=== PATIENT | female | born 1955 | race Caucasian/White ===

== ENCOUNTER → 2020-06-21 13:54 | Outpatient (CLI) | payer OTHER, SELFPAY ==
[2020-06-21] MEDS: COVID-19 VACC #1, MRNA(MOD) 100 MCG/0.5 ML VIAL IM (14:00)
== END ==
PROVIDERS: Visit Provider Internal Medicine
DX: Z23 Encounter for immunization (principal)
CPT/HCPCS: 0011A; 91301

== ENCOUNTER → 2020-07-19 13:24 | Outpatient (CLI) | payer OTHER, SELFPAY ==
[2020-07-19] MEDS: COVID-19 VACC #2, MRNA(MOD) 100 MCG/0.5 ML VIAL IM (13:29)
== END ==
PROVIDERS: Visit Provider Internal Medicine
DX: Z23 Encounter for immunization (principal)
CPT/HCPCS: 0012A; 91301

== ENCOUNTER 2021-09-15 12:46 | Inpatient (IN) | payer OTHER, SELFPAY ==
[2021-09-15] VITALS (13 sets, daily range): BP systolic 134–173; BP diastolic 64–87; PULSE 74–84; RESP 18–43; TEMP 36.4; O2SAT 95–99; BMI 22.3
--- NOTE | 2021-09-15 17:07 | DI.CT.S_ITS ---
PROCEDURE: CT HEAD/BRAIN WO CON INDICATIONS: speech disturbance TECHNIQUE: Noncontrast 4.5 mm thick angled axial sections acquired from the foramen magnum to the vertex, with coronal and sagittal reformats. For radiation dose reduction, the following was used: automated exposure control, adjustment of mA and/or kV according to patient size. COMPARISON: None. FINDINGS: Image quality: Excellent. CSF spaces: Basal cisterns are patent. No extra-axial fluid collections. Lateral ventricles are asymmetric in size with the right greater than left, likely normal variant. Brain: No intracranial bleeds or masses. There is cerebral volume loss for age, with resultant ventricular and sulcal prominence. There are periventricular and deep white matter chronic small vessel ischemic changes. There is intracranial internal carotid artery atherosclerosis. Skull and face: Calvarium and visualized facial bones appear intact, without suspicious lesions. Sinuses: Visualized sinuses and mastoids are clear. IMPRESSION: Cerebral atrophy and microvascular ischemic changes. No evidence of an acute intracranial abnormality. Dictated by: Scottie Deras D.O. on 09/15/2021 at 17:07 Approved by: Scottie Deras D.O. on 09/15/2021 at 17:16
--- NOTE | 2021-09-15 17:07 | DI.RAD.S_ITS ---
PROCEDURE: XR THORACIC SPINE 2V INDICATIONS: spine pain TECHNIQUE: 3 views of the thoracic spine were acquired. COMPARISON: None. FINDINGS: Bones: No fractures or dislocations. Vertebral body heights are maintained. Multiple levels of endplate degenerative changes. No suspicious bony lesions. Twelve pairs of ribs are noted, and appear intact where visualized. S-shaped curvature of the thoracolumbar spine with dextroscoliotic curvature of the mid to lower thoracic spine and levo scoliotic curvature of the lumbar spine. Soft tissues: No paravertebral stripe thickening. Postsurgical changes of prior cholecystectomy. IMPRESSION: S-shaped scoliotic curvature of the thoracolumbar spine without acute osseous abnormality. Mild-moderate degenerative changes of the spine. Dictated by: Scottie Deras D.O. on 09/15/2021 at 17:04 Approved by: Scottie Deras D.O. on 09/15/2021 at 17:05
--- NOTE | 2021-09-15 17:12 | DI.RAD.S_ITS ---
PROCEDURE: XR CHEST 2V INDICATIONS: chest pain TECHNIQUE: 2 views of the chest were acquired. COMPARISON: None. FINDINGS: Surgical changes and devices: None. Lungs and pleura: There is no pneumothorax or pleural effusion. Multifocal ground-glass opacities noted throughout the lungs. Mediastinum: Mediastinal contours are normal. Heart size is normal. Vascular calcifications within the aorta. Bones and chest wall: No suspicious bony abnormalities. S-shaped scoliotic curvature of the thoracolumbar spine. Postsurgical changes of prior cholecystectomy. IMPRESSION: Multifocal ground-glass opacities noted throughout the lungs concerning for multifocal pneumonia, likely atypical infection. Dictated by: Scottie Deras D.O. on 09/15/2021 at 17:05 Approved by: Scottie Deras D.O. on 09/15/2021 at 17:07
[2021-09-15 18:03] LABS: Hematocrit 22.1 % (36-46); Hemoglobin 7.7 g/dL (12.0-16.0); Mean Corpuscular HGB Conc 34.7 % (30-36); Mean Corpuscular Hemoglobin 32.6 PG (26-34); Mean Corpuscular Volume 93.9 fL (80-100); Red Blood Cell Count 2.35 X10^6/uL (4.0-5.2); Red Cell Distribution Width 13.9 % (11.6-14.8); White Blood Cell Count 7.7 X10^3/uL (4.5-11.0)
[2021-09-15 18:15] LABS: Alanine Aminotransferase 22 IU/L (<35); Albumin 3.3 g/dL (3.5-5.0); Albumin Globulin Ratio 1.2 (1.0-2.8); Alkaline Phosphatase 115 U/L (38-126); Aspartate Aminotransferase 62 IU/L (14-36); BUN Creatinine Ratio 18.6 (6-22); Bilirubin Total 1.1 mg/dL (0.2-1.3); Blood Urea Nitrogen 50 mg/dL (7-17); Calcium 9.7 mg/dL (8.4-10.2); Carbon Dioxide 10 mmol/L (22-32); Chloride 106 mmol/L (98-107); Estimated Glomerular Filt Rate 19 mL/min (>60); Globulin 2.7 g/dL (1.7-4.1); Glucose 70 mg/dL (80-110); HEMOLYSIS < 15 (0-50); Potassium 2.9 mmol/L (3.4-5.1); Sodium 134 mmol/L (137-145)
--- NOTE | 2021-09-15 18:17 | ED.BACK ---
HPI - Back Pain/Injury General Chief Complaint: Back Pain/Injury Stated Complaint: Possible Stroke Time Seen by Provider: 09/15/21 18:18 Source: patient History of Present Illness HPI Narrative: 65-year-old female smoker presents with a family friend with multiple complaints that have been persisting for quite some time. She does not endorse any chronic or known medical history and does not take any medications. She states she has not been to a doctor in quite some time. She has had profound fatigue and shortness of breath as well as constipation for many months. She states she has a very poor appetite and rarely eats but denies any significant weight loss. She has chronic headaches and back pain, but denies any traumatic injury. She has had no specific pattern to her headaches and denies any obvious provocation, palliation or location. She denies any blurred vision or trouble with speech but admits to dry mouth. She has no difficulty swallowing, balance issues or obvious focal neurologic deficits. Related Data Allergies Allergy/AdvReac Type Severity Reaction Status Date / Time No Known Drug Allergies Allergy Verified 09/16/21 03:26 Review of Systems Review of Systems Narrative: GENERAL: Denies chills, fatigue, malaise, fever, sweats. HEENT: Denies sinus pain, ear pain, sore throat, difficulty swallowing, dizziness. RESPIRATORY: Denies dyspnea, cough, wheezing, hemoptysis, sputum. CARDIOVASCULAR: Denies chest pain, palpitations, orthopnea, edema, GASTROINTESTINAL: Denies nausea, vomiting, abdominal pain, diarrhea, constipation, melena. : Denies dysuria, frequency, incontinence, hematuria, urinary retention. MUSCULOSKELETAL: denies weakness, joint pain, or bony pain SKIN: Denies rash, skin lesions, or other NEUROLOGIC: Denies weakness, headache, numbness, change in speech, confusion, seizures, incoordination. PSYCHIATRIC: No concerning psychosocial issues. 12 point review of systems is negative except for those stated above Patient History Social History household members: none Smoking Status: Current every day smoker alcohol intake: never Smoking Status: Current every day smoker Substance Use Type: does not use Exam Narrative Exam Narrative: GENERAL: [65] year old patient appears stated age. Well-developed patient, in mild distress. HEAD: Atraumatic. Normocephalic. EYES: Pupils equal round and reactive. Extraocular motions intact. No scleral icterus. No injection or drainage. ENT: Dry mucous membranes Nose without bleeding, purulent drainage. Throat without erythema, tonsillar hypertrophy or exudate. Airway patent. NECK: Trachea midline. Non tender CARDIOVASCULAR: Regular rate and rhythm without murmurs, gallops, or rubs. RESPIRATORY: Clear to auscultation. Breath sounds equal bilaterally. No wheezes, rales, or rhonchi. GASTROINTESTINAL: Abdomen soft, non-tender, nondistended. EXTREMITIES: No edema or joint tenderness. BACK: Nontender without deformity or crepitance. No flank tenderness. NEURO: AOx3. SKIN: No rash or erythema of visible areas Initial Vital Signs Initial Vital Signs: Vital Signs Temperature 97.6 F 09/15/21 12:50 Pulse Rate 77 09/15/21 12:50 Respiratory Rate 18 09/15/21 12:50 Blood Pressure 148/76 H 09/15/21 12:50 Pulse Oximetry 96 09/15/21 12:50 Oxygen Delivery Method 09/15/21 12:50 Course Orders Ordered: ED Orders 09/16/21 00:23 BNP [NT-proBNP (BNP-Adult 18+)] Stat Troponin I Stat Acetaminophen (Acetaminophen 325 Mg Tablet) 650 mg PO Q6HR PRN PRN Reason: Fever/Mild Pain (1-3) Atorvastatin Calcium (Atorvastatin 20 Mg Tablet) 80 mg PO BEDTIME [facility] Furosemide (Furosemide 100 Mg/10 Ml Vial) 80 mg IV Q12H [facility] Last Admin: 09/16/21 02:08 Dose: 80 mg Documented By: JAMI Meropenem 1 gm/ Sodium (Chloride) 100 mls @ 200 mls/hr IV Q8H [facility] Last Infusion: 09/16/21 03:51 Dose: 0 mls/hr Documented By: Admin: 09/16/21 02:18 Dose: 200 mls/hr Documented By: JAMI Naloxone HCl (Naloxone 0.4 Mg/Ml Vial) 0.2 mg IV Q2MIN PRN PRN Reason: Opiate Reversal Ondansetron HCl (Ondansetron 4 Mg/2 Ml Inj) 4 mg IV Q8HR PRN PRN Reason: Nausea And Vomiting Sodium Chloride (Sodium Chloride 0.9% Flush) 10 ml IV PRN PRN PRN Reason: Flush Sodium Chloride (Sodium Chloride 0.9% Flush) 10 ml IV BID [facility] Discontinued Medications Albuterol/Ipratropium (Albuterol/Ipratropium 3 Ml Ampul) 3 ml INH NOW ONE Stop: 09/15/21 20:59 Last Admin: 09/15/21 21:53 Dose: 3 ml Documented By: Sodium Chloride (Normal Saline 0.9%) 1,000 mls @ 1,000 mls/hr IV BOLUS ONE Stop: 09/15/21 19:37 Last Infusion: 09/15/21 23:00 Dose: 0 mls/hr Documented By: COUNTS INCLUDE 234 BEDS AT [facility] Admin: 09/15/21 18:48 Dose: 1,000 mls/hr Documented By: COUNTS INCLUDE 234 BEDS AT THE [facility] POTASSIUM CHLORIDE IN WATER (Potassium Cl 10 Meq/100 Ml Kenia) 10 meq in 100 mls @ 100 mls/hr IV Q1H [facility] Stop: 09/16/21 01:14 Last Infusion: 09/16/21 05:46 Dose: 0 mls/hr Documented By: [facility] Admin: 09/16/21 04:05 Dose: 100 mls/hr Documented By: [facility] Infusion: 09/16/21 04:05 Dose: 0 mls/hr Documented By: [facility] Infusion: 09/16/21 03:50 Dose: 0 mls/hr Documented By: [facility] Infusion: 09/16/21 02:18 Dose: 0 mls/hr Documented By: [facility] Admin: 09/16/21 02:16 Dose: 100 mls/hr Documented By: [facility] Infusion: 09/16/21 00:43 Dose: 100 mls/hr Documented By: [facility] Admin: 09/15/21 23:43 Dose: 100 mls/hr Documented By: COUNTS INCLUDE 234 BEDS AT [facility] Infusion: 09/15/21 23:11 Dose: 100 mls/hr Documented By: COUNTS INCLUDE 234 BEDS AT [facility] Admin: 09/15/21 22:11 Dose: 100 mls/hr Documented By: COUNTS INCLUDE 234 BEDS AT [facility] Infusion: 09/15/21 22:10 Dose: 0 mls/hr Documented By: COUNTS INCLUDE 234 BEDS AT [facility] Admin: 09/15/21 20:48 Dose: 100 mls/hr Documented By: COUNTS INCLUDE 234 BEDS AT [facility] Infusion: 09/15/21 20:43 Dose: 0 mls/hr Documented By: COUNTS INCLUDE 234 BEDS AT [facility] Admin: 09/15/21 19:47 Dose: 100 mls/hr Documented By: COUNTS INCLUDE 234 BEDS AT THE [facility] POTASSIUM CHLORIDE IN WATER (Potassium Cl 10 Meq/100 Ml Kenia) 10 meq in 100 mls @ 100 mls/hr IV Q1H [facility] Stop: 09/16/21 04:59 Last Admin: 09/16/21 04:04 Dose: 100 mls/hr Documented By: JAMI Vital Signs Vital signs: Vital Signs - 8 hr 09/15/21 22:30 09/15/21 22:30 09/15/21 23:00 Pulse Rate 80 Respiratory Rate 28 H Blood Pressure 134/72 136/79 Pulse Oximetry 95 09/15/21 23:00 09/15/21 23:30 09/15/21 23:30 Pulse Rate 81 84 Respiratory Rate 20 24 Blood Pressure 136/64 Pulse Oximetry 95 95 09/16/21 00:00 09/16/21 00:01 09/16/21 00:01 Pulse Rate 83 85 Respiratory Rate 26 H 31 H Blood Pressure 145/70 H Pulse Oximetry 94 93 MDM - Back Pain/Injury Lab Data Result diagrams: 09/16/21 05:01 09/16/21 05:01 Labs: Lab Results 09/15/21 09/15/21 09/15/21 Range/Units 00:02 17:50 17:50 WBC 7.7 (4.5-11.0) X10^3/uL RBC 2.35 L (4.0-5.2) X10^6/uL Hgb 7.7 L (12.0-16.0) g/dL Hct 22.1 L (36-46) % MCV 93.9 (80-100) fL MCH 32.6 (26-34) PG MCHC 34.7 (30-36) % RDW 13.9 (11.6-14.8) % Plt Count 37 L (150-400) X10^3/uL Neut % (Auto) Not Reportable Lymph % (Auto) Not Reportable [place] % (Auto) Not Reportable Eos % (Auto) Not Reportable Baso % (Auto) Not Reportable Lymph # (Auto) Not Reportable [place] # (Auto) Not Reportable Baso # (Auto) Not Reportable Total Counted 100 Seg Neutrophils % 41.0 (38-70) % Band Neutrophils % 8.0 H (3-7) % Lymphocytes % (Manual) 42.0 (25-45) % Atypical Lymphs % 1.0 H ( - 0) % Monocytes % (Manual) 5.0 (2-11) % Eosinophils % (Manual) 2.0 (2-4) % Basophils % (Manual) 1.0 (0-1) % Neutrophils # (Manual) 3773 (6735-4239) /uL Nucleated RBCs 1 H ( - 0) #/Diff Platelet Estimate Decreased on smear RBC Morphology See below Polychromasia 1+ H Anisocytosis 1+ H ESR (0-20) MM/HR PT (10.1-12.7) SECONDS INR (0.9-1.3) APTT (26.4-36.2) SECONDS ABG pH 7.21 L* (7.35-7.45) ABG pCO2 24.8 L* (35-45) mmHg ABG pO2 80 (80-100) mmHg ABG HCO3 10 L (22-26) mmol/L ABG Total CO2 11 L (21-31) mmol/L ABG O2 Saturation 93 L (95-100) % ABG Base Excess -18.0 L (-2-2) mmol/L FiO2 21 Sodium 134 L (137-145) mmol/L Potassium 2.9 L (3.4-5.1) mmol/L Chloride 106 (98-107) mmol/L Carbon Dioxide 10 L (22-32) mmol/L BUN 50 H (7-17) mg/dL Creatinine 2.69 H (0.52-1.04) mg/dL Estimated GFR 19 L (>60) mL/min BUN/Creatinine Ratio 18.6 (6-22) Glucose 70 L (80-110) mg/dL Lactate (0.7-2.1) mmol/L Calcium 9.7 (8.4-10.2) mg/dL Total Bilirubin 1.1 (0.2-1.3) mg/dL AST 62 H (14-36) IU/L ALT 22 (<35) IU/L Alkaline Phosphatase 115 (38-126) U/L Lactate Dehydrogenase (313-618) U/L Troponin I (0.01-0.034) ng/mL C-Reactive Protein (<1.0) mg/dL NT-Pro-B Natriuret Pep (<125) pg/mL Total Protein 6.0 L (6.3-8.2) g/dL Albumin 3.3 L (3.5-5.0) g/dL Globulin 2.7 (1.7-4.1) g/dL Albumin/Globulin Ratio 1.2 (1.0-2.8) TSH (0.47-4.68) uIU/mL Urine RBC (0-5/HPF) Urine WBC (0-5/HPF) Ur Squamous Epith Cells (0-5/HPF) Urine Bacteria (None) Ur Culture Indicated? SARS-CoV-2 (PCR) (Negative) Blood Type Antibody Screen 09/15/21 09/15/21 09/15/21 Range/Units 17:50 17:50 17:50 WBC (4.5-11.0) X10^3/uL RBC (4.0-5.2) X10^6/uL Hgb (12.0-16.0) g/dL Hct (36-46) % MCV (80-100) fL MCH (26-34) PG MCHC (30-36) % RDW (11.6-14.8) % Plt Count (150-400) X10^3/uL Neut % (Auto) Lymph % (Auto) [place] % (Auto) Eos % (Auto) Baso % (Auto) Lymph # (Auto) [place] # (Auto) Baso # (Auto) Total Counted Seg Neutrophils % (38-70) % Band Neutrophils % (3-7) % Lymphocytes % (Manual) (25-45) % Atypical Lymphs % ( - 0) % Monocytes % (Manual) (2-11) % Eosinophils % (Manual) (2-4) % Basophils % (Manual) (0-1) % Neutrophils # (Manual) (5546-8488) /uL Nucleated RBCs ( - 0) #/Diff Platelet Estimate RBC Morphology Polychromasia Anisocytosis ESR (0-20) MM/HR PT 14.7 H (10.1-12.7) SECONDS INR 1.3 (0.9-1.3) APTT 25 L (26.4-36.2) SECONDS ABG pH (7.35-7.45) ABG pCO2 (35-45) mmHg ABG pO2 (80-100) mmHg ABG HCO3 (22-26) mmol/L ABG Total CO2 (21-31) mmol/L ABG O2 Saturation (95-100) % ABG Base Excess (-2-2) mmol/L FiO2 Sodium (137-145) mmol/L Potassium (3.4-5.1) mmol/L Chloride (98-107) mmol/L Carbon Dioxide (22-32) mmol/L BUN (7-17) mg/dL Creatinine (0.52-1.04) mg/dL Estimated GFR (>60) mL/min BUN/Creatinine Ratio (6-22) Glucose (80-110) mg/dL Lactate (0.7-2.1) mmol/L Calcium (8.4-10.2) mg/dL Total Bilirubin (0.2-1.3) mg/dL AST (14-36) IU/L ALT (<35) IU/L Alkaline Phosphatase (38-126) U/L Lactate Dehydrogenase (313-618) U/L Troponin I 0.116 H (0.01-0.034) ng/mL C-Reactive Protein (<1.0) mg/dL NT-Pro-B Natriuret Pep (<125) pg/mL Total Protein (6.3-8.2) g/dL Albumin (3.5-5.0) g/dL Globulin (1.7-4.1) g/dL Albumin/Globulin Ratio (1.0-2.8) TSH 0.127 L (0.47-4.68) uIU/mL Urine RBC (0-5/HPF) Urine WBC (0-5/HPF) Ur Squamous Epith Cells (0-5/HPF) Urine Bacteria (None) Ur Culture Indicated? SARS-CoV-2 (PCR) (Negative) Blood Type Antibody Screen 09/15/21 09/15/21 09/15/21 Range/Units 17:50 17:50 17:50 WBC (4.5-11.0) X10^3/uL RBC (4.0-5.2) X10^6/uL Hgb (12.0-16.0) g/dL Hct (36-46) % MCV (80-100) fL MCH (26-34) PG MCHC (30-36) % RDW (11.6-14.8) % Plt Count (150-400) X10^3/uL Neut % (Auto) Lymph % (Auto) [place] % (Auto) Eos % (Auto) Baso % (Auto) Lymph # (Auto) [place] # (Auto) Baso # (Auto) Total Counted Seg Neutrophils % (38-70) % Band Neutrophils % (3-7) % Lymphocytes % (Manual) (25-45) % Atypical Lymphs % ( - 0) % Monocytes % (Manual) (2-11) % Eosinophils % (Manual) (2-4) % Basophils % (Manual) (0-1) % Neutrophils # (Manual) (4640-2147) /uL Nucleated RBCs ( - 0) #/Diff Platelet Estimate RBC Morphology Polychromasia Anisocytosis ESR 46 H (0-20) MM/HR PT (10.1-12.7) SECONDS INR (0.9-1.3) APTT (26.4-36.2) SECONDS ABG pH (7.35-7.45) ABG pCO2 (35-45) mmHg ABG pO2 (80-100) mmHg ABG HCO3 (22-26) mmol/L ABG Total CO2 (21-31) mmol/L ABG O2 Saturation (95-100) % ABG Base Excess (-2-2) mmol/L FiO2 Sodium (137-145) mmol/L Potassium (3.4-5.1) mmol/L Chloride (98-107) mmol/L Carbon Dioxide (22-32) mmol/L BUN (7-17) mg/dL Creatinine (0.52-1.04) mg/dL Estimated GFR (>60) mL/min BUN/Creatinine Ratio (6-22) Glucose (80-110) mg/dL Lactate 3.3 H (0.7-2.1) mmol/L Calcium (8.4-10.2) mg/dL Total Bilirubin (0.2-1.3) mg/dL AST (14-36) IU/L ALT (<35) IU/L Alkaline Phosphatase (38-126) U/L Lactate Dehydrogenase (313-618) U/L Troponin I (0.01-0.034) ng/mL C-Reactive Protein 19.6 H (<1.0) mg/dL NT-Pro-B Natriuret Pep (<125) pg/mL Total Protein (6.3-8.2) g/dL Albumin (3.5-5.0) g/dL Globulin (1.7-4.1) g/dL Albumin/Globulin Ratio (1.0-2.8) TSH (0.47-4.68) uIU/mL Urine RBC (0-5/HPF) Urine WBC (0-5/HPF) Ur Squamous Epith Cells (0-5/HPF) Urine Bacteria (None) Ur Culture Indicated? SARS-CoV-2 (PCR) (Negative) Blood Type Antibody Screen 09/15/21 09/15/21 09/15/21 Range/Units 17:50 18:50 19:35 WBC (4.5-11.0) X10^3/uL RBC (4.0-5.2) X10^6/uL Hgb (12.0-16.0) g/dL Hct (36-46) % MCV (80-100) fL MCH (26-34) PG MCHC (30-36) % RDW (11.6-14.8) % Plt Count (150-400) X10^3/uL Neut % (Auto) Lymph % (Auto) [place] % (Auto) Eos % (Auto) Baso % (Auto) Lymph # (Auto) [place] # (Auto) Baso # (Auto) Total Counted Seg Neutrophils % (38-70) % Band Neutrophils % (3-7) % Lymphocytes % (Manual) (25-45) % Atypical Lymphs % ( - 0) % Monocytes % (Manual) (2-11) % Eosinophils % (Manual) (2-4) % Basophils % (Manual) (0-1) % Neutrophils # (Manual) (4780-3392) /uL Nucleated RBCs ( - 0) #/Diff Platelet Estimate RBC Morphology Polychromasia Anisocytosis ESR (0-20) MM/HR PT (10.1-12.7) SECONDS INR (0.9-1.3) APTT (26.4-36.2) SECONDS ABG pH (7.35-7.45) ABG pCO2 (35-45) mmHg ABG pO2 (80-100) mmHg ABG HCO3 (22-26) mmol/L ABG Total CO2 (21-31) mmol/L ABG O2 Saturation (95-100) % ABG Base Excess (-2-2) mmol/L FiO2 Sodium (137-145) mmol/L Potassium (3.4-5.1) mmol/L Chloride (98-107) mmol/L Carbon Dioxide (22-32) mmol/L BUN (7-17) mg/dL Creatinine (0.52-1.04) mg/dL Estimated GFR (>60) mL/min BUN/Creatinine Ratio (6-22) Glucose (80-110) mg/dL Lactate (0.7-2.1) mmol/L Calcium (8.4-10.2) mg/dL Total Bilirubin (0.2-1.3) mg/dL AST (14-36) IU/L ALT (<35) IU/L Alkaline Phosphatase (38-126) U/L Lactate Dehydrogenase 2018 H (313-618) U/L Troponin I (0.01-0.034) ng/mL C-Reactive Protein (<1.0) mg/dL NT-Pro-B Natriuret Pep (<125) pg/mL Total Protein (6.3-8.2) g/dL Albumin (3.5-5.0) g/dL Globulin (1.7-4.1) g/dL Albumin/Globulin Ratio (1.0-2.8) TSH (0.47-4.68) uIU/mL Urine RBC 0-1/hpf (0-5/HPF) Urine WBC 5-10/hpf H (0-5/HPF) Ur Squamous Epith Cells 1-5 /hpf (0-5/HPF) Urine Bacteria Many (>30) H (None) Ur Culture Indicated? Specimen cultured SARS-CoV-2 (PCR) (Negative) Blood Type O Positive Antibody Screen Negative 09/15/21 09/16/21 09/16/21 Range/Units 21:03 00:23 00:23 WBC (4.5-11.0) X10^3/uL RBC (4.0-5.2) X10^6/uL Hgb (12.0-16.0) g/dL Hct (36-46) % MCV (80-100) fL MCH (26-34) PG MCHC (30-36) % RDW (11.6-14.8) % Plt Count (150-400) X10^3/uL Neut % (Auto) Lymph % (Auto) [place] % (Auto) Eos % (Auto) Baso % (Auto) Lymph # (Auto) [place] # (Auto) Baso # (Auto) Total Counted Seg Neutrophils % (38-70) % Band Neutrophils % (3-7) % Lymphocytes % (Manual) (25-45) % Atypical Lymphs % ( - 0) % Monocytes % (Manual) (2-11) % Eosinophils % (Manual) (2-4) % Basophils % (Manual) (0-1) % Neutrophils # (Manual) (0673-5550) /uL Nucleated RBCs ( - 0) #/Diff Platelet Estimate RBC Morphology Polychromasia Anisocytosis ESR (0-20) MM/HR PT (10.1-12.7) SECONDS INR (0.9-1.3) APTT (26.4-36.2) SECONDS ABG pH (7.35-7.45) ABG pCO2 (35-45) mmHg ABG pO2 (80-100) mmHg ABG HCO3 (22-26) mmol/L ABG Total CO2 (21-31) mmol/L ABG O2 Saturation (95-100) % ABG Base Excess (-2-2) mmol/L FiO2 Sodium (137-145) mmol/L Potassium (3.4-5.1) mmol/L Chloride (98-107) mmol/L Carbon Dioxide (22-32) mmol/L BUN (7-17) mg/dL Creatinine (0.52-1.04) mg/dL Estimated GFR (>60) mL/min BUN/Creatinine Ratio (6-22) Glucose (80-110) mg/dL Lactate (0.7-2.1) mmol/L Calcium (8.4-10.2) mg/dL Total Bilirubin (0.2-1.3) mg/dL AST (14-36) IU/L ALT (<35) IU/L Alkaline Phosphatase (38-126) U/L Lactate Dehydrogenase (313-618) U/L Troponin I 0.146 H* (0.01-0.034) ng/mL C-Reactive Protein (<1.0) mg/dL NT-Pro-B Natriuret Pep 7350 H (<125) pg/mL Total Protein (6.3-8.2) g/dL Albumin (3.5-5.0) g/dL Globulin (1.7-4.1) g/dL Albumin/Globulin Ratio (1.0-2.8) TSH (0.47-4.68) uIU/mL Urine RBC (0-5/HPF) Urine WBC (0-5/HPF) Ur Squamous Epith Cells (0-5/HPF) Urine Bacteria (None) Ur Culture Indicated? SARS-CoV-2 (PCR) Negative (Negative) Blood Type Antibody Screen Urine Dip Bedside Urine Glucose Negative Bedside Urine Bilirubin - Negative Bedside Urine Ketone - Negative Urine Specific [place] 1.015 Bedside Urine Occult Blood - Negative Bedside Urine pH 6.0 Bedside Urine Protein + 30 Bedside Urine Urobilinogen - Negative Bedside Urine Nitrite - Negative Bedside Urine Leukocytes +/- [address] scan - head: Radiologist's Impression: Ria Leoanrd??65??F??1955 ? Allergy/Adv: Not Recorded Close Chest X-Ray (Signed) Deras,09/15/21 Thoracic Spine X-Ray (Signed) Deras,09/15/[address] (Signed) Deras,09/15/21 [place] [address] CT Scan Report Signed Patient: Ria Leonard MR#: [id number] : 1955 Acct:[id number] Age/Sex: 65 / F Date of Service: 09/15/21 Loc: ED Accession Number: [id number] ?? Procedure: CT head/brain wo con Ordering Provider: Thanh Pak MD PROCEDURE:? CT HEAD/BRAIN WO CON ? INDICATIONS:? speech disturbance ? TECHNIQUE:? Noncontrast 4.5 mm thick angled axial sections acquired from the foramen magnum to the vertex, with coronal and sagittal reformats.? For radiation dose reduction, the following was used:? automated exposure control, adjustment of mA and/or kV according to patient size.? ? COMPARISON:? None. ? FINDINGS:? Image quality:? Excellent.? ? CSF spaces:? Basal cisterns are patent.? No extra-axial fluid collections.? Lateral ventricles are asymmetric in size with the right greater than left, likely normal variant. ? Brain:? No intracranial bleeds or masses.? There is cerebral volume loss for age, with resultant ventricular and sulcal prominence.? There are periventricular and deep white matter chronic small vessel ischemic changes.? There is intracranial internal carotid artery atherosclerosis.? ? Skull and face:? Calvarium and visualized facial bones appear intact, without suspicious lesions.? ? Sinuses:? Visualized sinuses and mastoids are clear.? ? IMPRESSION:? Cerebral atrophy and microvascular ischemic changes.? No evidence of an acute intracranial abnormality. ? ? Dictated by: Scottie Deras D.O. on 09/15/2021 at 17:07 ? ? Approved by: Scottie Deras D.O. on 09/15/2021 at 17:16 ? Discharge Plan Departure Patient Disposition: Admitted As Inpatient Clinical Impression: Pneumonia, Sepsis, Thrombocytopenia Admit Date/Time: 09/16/21 00:23 Admit Provider: Oswaldo Calix
[2021-09-15 18:22] LABS: Add Manual Diff / Slide Review YES; Platelet Count 37 X10^3/uL (150-400)
[2021-09-15 18:27] LABS: Troponin I 0.116 ng/mL (0.01-0.034)
[2021-09-15 18:29] LABS: Neutrophils Absolute Manual 3773 /uL (3000-5900); Nucleated Red Blood Cells 1 #/Diff; Total Cells Counted 100
[2021-09-15 18:30] LABS: Anisocytosis 1+; Platelet Estimate Decreased on smear; Polychromasia 1+
--- NOTE | 2021-09-15 18:40 | DI.CT.S_ITS ---
PROCEDURE: CT CHEST ABD PEL WO CON INDICATIONS: weakness, fatigue, anemia, pain TECHNIQUE: After the administration of oral contrast, 5 mm thick sections acquired from the lung apices to the symphysis pubis. 5 mm thick coronal and sagittal reformats acquired, with additional 7 mm coronal MIP reformats through the lungs. For radiation dose reduction, the following was used: automated exposure control, adjustment of mA and/or kV according to patient size. COMPARISON: None. FINDINGS: Image quality: Excellent. CHEST: Lungs and pleura: Numerous scattered patchy areas of ground-glass opacity throughout both lungs. Trace left pleural effusion. No pneumothorax. Central and peripheral airways are patent. Mediastinum: Heart size at the upper limits of normal. Small left ventricular apex aneurysm with wall thinning. No pericardial effusion. Mild coronary artery calcification. Pulmonary arteries at the upper limits of normal in size. Normal aortic contour with trace calcification. No mediastinal or hilar adenopathy. The esophagus is normal without hiatal hernia. Chest wall: Right anterior rib fractures four, five, six with surrounding soft tissue thickening. Left anterior rib fracture three, four, five, and left posterior rib fracture 12. No vertebral body fractures. Degenerative disc change. No axillary or lower neck adenopathy. Thyroid is normal. ABDOMEN: Solid organs: Liver is normal in size. Gallbladder is surgically absent . Pancreas is normal in contours. Spleen is normal in size. No adrenal nodules. Both kidneys are normal in size, without hydronephrosis or nephrolithiasis. Peritoneum and bowel: There is vague diffuse increased density of the omentum without focal nodularity or mass. Stomach, small, and large bowel loops are normal caliber. There is mucosal hyperenhancement involving proximal to mid transverse colon. Diverticulosis of the sigmoid. Nodes and vessels: No retroperitoneal or mesenteric adenopathy or mass. Abdominal aorta is normal caliber. The inferior vena cava is decompressed. Miscellaneous: No ventral hernias. PELVIS: Genitourinary: Bladder wall thickness is normal. Normal age-appropriate uterus. Miscellaneous: No inguinal hernias or adenopathy. Bones: No suspicious bony lesions. No vertebral body compression fractures. IMPRESSION: 1. Multifocal bilateral patchy ground-glass opacities in both lungs suggesting viral pneumonia. 2. Trace left pleural effusion. 3. Multiple mainly anterior bilateral rib fractures in a distribution raising the possibility of prior anterior impaction. 4. Small left ventricular apical aneurysm. 5. Nonspecific diffuse omental thickening. 6. Nonspecific hyperenhancement of the mucosa involving the proximal colon. Correlate with any symptoms of colitis. Dictated by: Daria Mccabe M.D. on 09/15/2021 at 19:55 Approved by: Daria Mccabe M.D. on 09/15/2021 at 20:05
[2021-09-15 18:45] LABS: INR 1.3 (0.9-1.3); Prothrombin Time 14.7 SECONDS (10.1-12.7)
[2021-09-15 18:48] LABS: PTT Partial Thromboplastin Tim 25 SECONDS (26.4-36.2)
[2021-09-15] MEDS: SODIUM CHLORIDE 0.9% 1,000 ML 1000 ML IV (18:48)
[2021-09-15 18:53] LABS: Thyroid Stimulating Hormone 0.127 uIU/mL (0.47-4.68)
[2021-09-15 19:15] LABS: Erythrocyte Sedimentation Rate 46 MM/HR (0-20)
[2021-09-15 19:20] LABS: C-Reactive Protein Quant 19.6 mg/dL (<1.0)
[2021-09-15] MEDS: POTASSIUM CHLORIDE IN WATER 10 MEQ/100 ML PIGGYBACK 100 MEQ IV ×4 (19:47→23:43)
[2021-09-15 20:20] LABS: Bacteria Urine Many (>30); Culture Indicated Urine Specimen Cultured; RBC Urine 0-1/HPF (0-5/HPF); Squamous Epithelial Cell Urine 1-5 /HPF (0-5/HPF); WBC Urine 5-10/HPF (0-5/HPF)
--- NOTE | 2021-09-15 21:06 | PC.NURSE ---
Slightly more edematous on left lower leg. Reports horrible sleep over last week, increase SOB. Upper airway wheezing noted. No acute distress noted. Patient oxygen saturation 95-97%. Upon evaluation patient family reports patient is very lethargic, her speech is not nearly as animated and clear per family.
[2021-09-15 21:28] LABS: COVID19 -Nasal RAPID Negative (Negative)
[2021-09-15] MEDS: ALBUTEROL/IPRATROPIUM 3 ML AMPUL INH (21:53)
[2021-09-15 23:30] LABS: Lactate (Lactic Acid) 3.3 mmol/L (0.7-2.1)
[2021-09-15 23:50] LABS: Lactate Dehydrogenase 2018 U/L (313-618)
[2021-09-16] VITALS (49 sets, daily range): BP systolic 90–145; BP diastolic 53–84; PULSE 69–98; RESP 12–43; TEMP 36.1–37.9; O2SAT 86–95; BMI 22.3
--- NOTE | 2021-09-16 00:03 | PC.NURSE ---
RT unable to obtain ABG. Left brachial ABG obtained by this RN. Patient tolerated well. Pressure and dressing applied to site
[2021-09-16 00:29] LABS: pH ABG 7.21 (7.35-7.45)
[2021-09-16 00:30] LABS: Fractionated Inspired Oxygen 21; HCO3 ABG 10 mmol/L (22-26); Oxygen Saturation ABG 93 % (95-100); PCO2 ABG 24.8 mmHg (35-45); PO2 ABG 80 mmHg (80-100); TCO2 ABG 11 mmol/L (21-31)
[2021-09-16 00:58] LABS: NT-proBNP (BNP-Adult 18+) 7350 pg/mL (<125)
[2021-09-16 01:04] LABS: Troponin I 0.146 ng/mL (0.01-0.034)
--- NOTE | 2021-09-16 01:19 | PM.HP.1 ---
History of Present Illness History of Present Illness Date Patient Seen: 09/16/21 Time Patient Seen: 00:30 Chief complaint: Possible Stroke Narrative: Ms. Leonard is a 65W with no significant PMH as she has not seen a physician in years who presents to the hospital with shortness of breath, leg weakness. She states she has had long time back pain. She takes as many as twelve ibuprofen daily, she is not surge of milligram dose. More recently over the last few days she has developed shortness of breath. She has a cough that is not produtive. No fevers/chills. She has long time constipation for weeks, and can not remember when her last bowel movement occurred. She has noted weakness in her left leg for days. She has also noted blurry vision in her right eye and numbness in her chin for months. She has not noted any bleeding in her stool. No vomiting. No abdominal pain. No chest pain. In the ED workup was done, vitals notable for tachypnea. Labs notable for WBC 7.7, hgb 7.7, plts 37. Na 134, k 2.9, co2 10, creatinine 2.69. Trop 0.115. ESR and CRP elevated. BNP 7350. Lactate 3.3. Ua with bacteria and WBCs. COVID negative. CT head showed no acute process. CT thorax shows bilateral patchy groundglass opacities, multiople old rib fractures, diffuse omental thickening and hyperenhancement of the colon. She was ordered for fluids, nebs, and then lasix and antibiotics and admitted for further treatment. Medical history: none known Medications: ibuprofen PRN Family history: multiple sisters with cancer, and another sister with lupus Social history: long time cigarette smoker Patient History Family & Social History Safety & Behavioral: Feels Safe in Current No Environment Been Physically Hurt or No Threatened By a Person Tobacco & Substance use: Smoking Status Current every day smoker Substance Use Type does not use Review of Systems Review of Systems Narrative: 14 systems reviewed and negative aside from what is noted in HPI Exam Vital Signs (past 8 hours): - 09/15/21 19:55 09/15/21 20:00 09/15/21 20:00 Pulse Rate 80 81 Respiratory Rate 27 H 26 H Blood Pressure 159/87 H Pulse Oximetry 97 96 Oxygen Delivery Method 09/15/21 20:30 09/15/21 20:30 09/15/21 20:46 Pulse Rate 81 81 Respiratory Rate 30 H 34 H Blood Pressure 173/79 H Pulse Oximetry 95 96 Oxygen Delivery Method 09/15/21 20:46 09/15/21 21:00 09/15/21 21:01 Pulse Rate 79 Respiratory Rate 43 H Blood Pressure 156/76 H 143/66 H Pulse Oximetry 96 Oxygen Delivery Method 09/15/21 21:01 09/15/21 21:55 09/15/21 21:30 Pulse Rate 79 78 Respiratory Rate 35 H Blood Pressure 148/79 H Pulse Oximetry 95 Oxygen Delivery Method Room Air 09/15/21 21:30 09/15/21 22:00 09/15/21 22:00 Pulse Rate 81 74 Respiratory Rate 24 26 H Blood Pressure 143/73 H Pulse Oximetry 96 99 Oxygen Delivery Method 09/15/21 22:30 09/15/21 22:30 09/15/21 23:00 Pulse Rate 80 Respiratory Rate 28 H Blood Pressure 134/72 136/79 Pulse Oximetry 95 Oxygen Delivery Method 09/15/21 23:00 09/15/21 23:30 09/15/21 23:30 Pulse Rate 81 84 Respiratory Rate 20 24 Blood Pressure 136/64 Pulse Oximetry 95 95 Oxygen Delivery Method 09/16/21 00:00 09/16/21 00:01 09/16/21 00:01 Pulse Rate 83 85 Respiratory Rate 26 H 31 H Blood Pressure 145/70 H Pulse Oximetry 94 93 Oxygen Delivery Method Oxygen Delivery Method Room Air Narrative Exam Narrative: GEN: pale, chronically ill appearing HEENT: moist mucous membranes, PERRL NECK: trachea midline, no JVD CV: regular rate and rhythm, no murmurs PULM: crackles and coarse breath sounds bilaterally, significant work of breathing, can not complete two words without shortness of breath ABD: soft, nontender, nondistended, no organomegaly, normal bowel sounds EXT: warm and well perfused, 1+ pitting edema NEURO: awake, alert, left leg weakness at hip, knee, and ankle Objective Labs Result Diagrams: 09/15/21 17:50 09/15/21 17:50 Labs: Laboratory Results - last 24 hr 09/15/21 09/15/21 09/15/21 00:02 17:50 17:50 WBC 7.7 RBC 2.35 L Hgb 7.7 L Hct 22.1 L MCV 93.9 MCH 32.6 MCHC 34.7 RDW 13.9 Plt Count 37 L Neut % (Auto) Not Reportable Lymph % (Auto) Not Reportable [place] % (Auto) Not Reportable Eos % (Auto) Not Reportable Baso % (Auto) Not Reportable Lymph # (Auto) Not Reportable [place] # (Auto) Not Reportable Baso # (Auto) Not Reportable Total Counted 100 Seg Neutrophils % 41.0 Band Neutrophils % 8.0 H Lymphocytes % (Manual) 42.0 Atypical Lymphs % 1.0 H Monocytes % (Manual) 5.0 Eosinophils % (Manual) 2.0 Basophils % (Manual) 1.0 Neutrophils # (Manual) 3773 Nucleated RBCs 1 H Platelet Estimate Decreased on smear RBC Morphology See below Polychromasia 1+ H Anisocytosis 1+ H ESR PT INR APTT ABG pH 7.21 L* ABG pCO2 24.8 L* ABG pO2 80 ABG HCO3 10 L ABG Total CO2 11 L ABG O2 Saturation 93 L ABG Base Excess -18.0 L FiO2 21 Sodium 134 L Potassium 2.9 L Chloride 106 Carbon Dioxide 10 L BUN 50 H Creatinine 2.69 H Estimated GFR 19 L BUN/Creatinine Ratio 18.6 Glucose 70 L Lactate Calcium 9.7 Total Bilirubin 1.1 AST 62 H ALT 22 Alkaline Phosphatase 115 Lactate Dehydrogenase Troponin I C-Reactive Protein NT-Pro-B Natriuret Pep Total Protein 6.0 L Albumin 3.3 L Globulin 2.7 Albumin/Globulin Ratio 1.2 TSH Urine RBC Urine WBC Ur Squamous Epith Cells Urine Bacteria Ur Culture Indicated? SARS-CoV-2 (PCR) Blood Type Antibody Screen 09/15/21 09/15/21 09/15/21 17:50 17:50 17:50 WBC RBC Hgb Hct MCV MCH MCHC RDW Plt Count Neut % (Auto) Lymph % (Auto) [place] % (Auto) Eos % (Auto) Baso % (Auto) Lymph # (Auto) [place] # (Auto) Baso # (Auto) Total Counted Seg Neutrophils % Band Neutrophils % Lymphocytes % (Manual) Atypical Lymphs % Monocytes % (Manual) Eosinophils % (Manual) Basophils % (Manual) Neutrophils # (Manual) Nucleated RBCs Platelet Estimate RBC Morphology Polychromasia Anisocytosis ESR PT 14.7 H INR 1.3 APTT 25 L ABG pH ABG pCO2 ABG pO2 ABG HCO3 ABG Total CO2 ABG O2 Saturation ABG Base Excess FiO2 Sodium Potassium Chloride Carbon Dioxide BUN Creatinine Estimated GFR BUN/Creatinine Ratio Glucose Lactate Calcium Total Bilirubin AST ALT Alkaline Phosphatase Lactate Dehydrogenase Troponin I 0.116 H C-Reactive Protein NT-Pro-B Natriuret Pep Total Protein Albumin Globulin Albumin/Globulin Ratio TSH 0.127 L Urine RBC Urine WBC Ur Squamous Epith Cells Urine Bacteria Ur Culture Indicated? SARS-CoV-2 (PCR) Blood Type Antibody Screen 09/15/21 09/15/21 09/15/21 17:50 17:50 17:50 WBC RBC Hgb Hct MCV MCH MCHC RDW Plt Count Neut % (Auto) Lymph % (Auto) [place] % (Auto) Eos % (Auto) Baso % (Auto) Lymph # (Auto) [place] # (Auto) Baso # (Auto) Total Counted Seg Neutrophils % Band Neutrophils % Lymphocytes % (Manual) Atypical Lymphs % Monocytes % (Manual) Eosinophils % (Manual) Basophils % (Manual) Neutrophils # (Manual) Nucleated RBCs Platelet Estimate RBC Morphology Polychromasia Anisocytosis ESR 46 H PT INR APTT ABG pH ABG pCO2 ABG pO2 ABG HCO3 ABG Total CO2 ABG O2 Saturation ABG Base Excess FiO2 Sodium Potassium Chloride Carbon Dioxide BUN Creatinine Estimated GFR BUN/Creatinine Ratio Glucose Lactate 3.3 H Calcium Total Bilirubin AST ALT Alkaline Phosphatase Lactate Dehydrogenase Troponin I C-Reactive Protein 19.6 H NT-Pro-B Natriuret Pep Total Protein Albumin Globulin Albumin/Globulin Ratio TSH Urine RBC Urine WBC Ur Squamous Epith Cells Urine Bacteria Ur Culture Indicated? SARS-CoV-2 (PCR) Blood Type Antibody Screen 09/15/21 09/15/21 09/15/21 17:50 18:50 19:35 WBC RBC Hgb Hct MCV MCH MCHC RDW Plt Count Neut % (Auto) Lymph % (Auto) [place] % (Auto) Eos % (Auto) Baso % (Auto) Lymph # (Auto) [place] # (Auto) Baso # (Auto) Total Counted Seg Neutrophils % Band Neutrophils % Lymphocytes % (Manual) Atypical Lymphs % Monocytes % (Manual) Eosinophils % (Manual) Basophils % (Manual) Neutrophils # (Manual) Nucleated RBCs Platelet Estimate RBC Morphology Polychromasia Anisocytosis ESR PT INR APTT ABG pH ABG pCO2 ABG pO2 ABG HCO3 ABG Total CO2 ABG O2 Saturation ABG Base Excess FiO2 Sodium Potassium Chloride Carbon Dioxide BUN Creatinine Estimated GFR BUN/Creatinine Ratio Glucose Lactate Calcium Total Bilirubin AST ALT Alkaline Phosphatase Lactate Dehydrogenase 2018 H Troponin I C-Reactive Protein NT-Pro-B Natriuret Pep Total Protein Albumin Globulin Albumin/Globulin Ratio TSH Urine RBC 0-1/hpf Urine WBC 5-10/hpf H Ur Squamous Epith Cells 1-5 /hpf Urine Bacteria Many (>30) H Ur Culture Indicated? Specimen cultured SARS-CoV-2 (PCR) Blood Type O Positive Antibody Screen Negative 09/15/21 09/16/21 09/16/21 21:03 00:23 00:23 WBC RBC Hgb Hct MCV MCH MCHC RDW Plt Count Neut % (Auto) Lymph % (Auto) [place] % (Auto) Eos % (Auto) Baso % (Auto) Lymph # (Auto) [place] # (Auto) Baso # (Auto) Total Counted Seg Neutrophils % Band Neutrophils % Lymphocytes % (Manual) Atypical Lymphs % Monocytes % (Manual) Eosinophils % (Manual) Basophils % (Manual) Neutrophils # (Manual) Nucleated RBCs Platelet Estimate RBC Morphology Polychromasia Anisocytosis ESR PT INR APTT ABG pH ABG pCO2 ABG pO2 ABG HCO3 ABG Total CO2 ABG O2 Saturation ABG Base Excess FiO2 Sodium Potassium Chloride Carbon Dioxide BUN Creatinine Estimated GFR BUN/Creatinine Ratio Glucose Lactate Calcium Total Bilirubin AST ALT Alkaline Phosphatase Lactate Dehydrogenase Troponin I 0.146 H* C-Reactive Protein NT-Pro-B Natriuret Pep 7350 H Total Protein Albumin Globulin Albumin/Globulin Ratio TSH Urine RBC Urine WBC Ur Squamous Epith Cells Urine Bacteria Ur Culture Indicated? SARS-CoV-2 (PCR) Negative Blood Type Antibody Screen Assessment & Plan Assessment & Plan narrative: Ms. Leonard is a 65W who presents with left leg weakness, shortness of breath. 1. Acute respiratory distress and pneumonia with concern for severe sepsis -CT chest shows multifocal infiltrates concerning for infection, possibly viral -COVID negative -respiratory panel ordered -check sputum culture -continue meropenem -careful with vanco given renal injury 2. Metabolic acidosis -from combination of renal failure and lactic acidosis from presumed infection -treat both as noted 3. Probable LEO -baseline creatinine unknown -suspect has LEO -no hydronephrosis on CT -monitor creatinine closely -patient states still urinates normally -does use significant nsaids, while UA not consistent with AIN, can not rule out 4. Anemia -etiology not known -patient denies overt GI bleeding -monitor for bleeding -transfuse for hgb <7 -workup with iron studies, haptoglobin, folate, b12, blood smear, retic count 5. Thrombocytopenia -etiology not clear, possibly from infection -heparin not indicated -ordered for fibrinogen, d-dimer, HIV for further workup -blood smear ordered, lower suspicion for TTP 6. Possible CHF -patient noted to have lower extremity edema, crackles on lung exam, elevated BNP -no known cardiac disease -start IV lasix -ordered ECHO to evaluate further -ortiz to monitor I/Os closely 7. Questionable UTI -UA with positive bacteria -urine culture pending -already on meropenem 8. Elevated troponin -suspect secondary to myocardial demand ischemia -ECHO ordered -aspirin not ordered due to risk from possible bleeding -doubt acs due to absence of chest pain -recheck troponin in AM 9. Hypokalemia -has been repleted in ED -recheck potassium level -careful with repletion given elevated creatinine 10. Left leg weakness -has been occurring for days -ordered MRI to rule out stroke -no antiplatelets for now given anemia and concern for possible bleed -ordered statin -ordered echo as above -PT/OT speech ordered -check serial NIH -patient with back pain, consider spine imaging if MRI head negative 11. Omental thickening -etiology uncertain -malignancy, infectious, inflammatory etiology are considered 12. Mucosal enhancement of the colon -etiology not clear, patient states has constipation -may benefit from colonoscopy -no diarrhea, so doubt infectious etiology Patient's prognosis is poor. I have tried to contact the patient's family member with the only number currently available with no answer. CODE: DNR/DNI Proxy: Lela Soto, Sister I have utilized all available resources to reconcile the patient's home medications Time Spent With Patient Critical Care time: I spent a total of [] minutes of critical care time on this patient's care today; this time is exclusive of procedural time. Quality MIPS - Admit I confirm the patient?s Advance Care Plan is present, Code status is documented, Surrogate decision maker is in patient?s record [If Yes, STOP here]: Yes
--- NOTE | 2021-09-16 01:23 | DI.MRI.S_ITS ---
PROCEDURE: MR STROKE Pre- and post-contrast brain MRI, non-contrast brain MR angiogram, pre- and postcontrast neck MR angiogram INDICATIONS: left leg weakness TECHNIQUE: Brain: Noncontrast axial T1 spin echo, axial T2 fast spin echo, sagittal and axial FLAIR, coronal T2 fast spin echo, axial gradient echo, axial diffusion and ADC through the brain. After the administration of contrast, axial 3D VIBE of the cranial vasculature and brain. Brain MRA: Non-contrast 3-D time of flight MR angiogram, with multiple bhtxqpa-fkzghguxq-fqmgukzdpc (MIP) reformats performed. Neck MRA: Axial and sagittal TruFISP through the neck. Coronal dynamic MR angiogram during administration of contrast in the arterial and venous phases, with 3-dimenstional roeamcv-xudpxcifg-avdxpdinre (MIP) reformats constructed from subtraction images. COMPARISON: Located Within [facility], CT, CT HEAD/BRAIN WO CON, 09/15/2021, 17:15. FINDINGS: Image quality: Excellent. BRAIN: CSF spaces: Asymmetry of the lateral ventricles is present, with relative enlargement of the frontal horn of the right lateral ventricle and narrowing of the frontal horn of the left lateral ventricle. Septum pellucidum is deviated to left of midline by roughly 5 mm. Ventricles are otherwise normal in size and shape. Basal cisterns are patent. No extra-axial fluid collections. Brain: Mild diffuse cerebral volume loss. Mild degree of patchy high FLAIR signal within the periventricular and subcortical white matter. No intracranial bleeds or mass effects. Gar-white matter interface is normal. Diffusion weighted images show no acute ischemic insults. Brainstem appears normal. Normal intravascular flow voids are present. No abnormal intracranial enhancement. Skull and face: Calvarial marrow signal is normal. Orbits appear normal. Sinuses: Moderate right and small amount of left mastoid fluid. Mastoids are clear. BRAIN MR ANGIOGRAM: Anterior circulation: Intracranial internal carotid arteries are normal in size and enhancement. The flow within the paired anterior cerebral arteries is normal and symmetric. The flow within the middle cerebral arteries is normal and symmetric. The anterior communicating artery is seen. No stenoses, occlusions, or aneurysms. Posterior circulation: The visualized portions of the vertebral arteries demonstrate normal caliber, and join to form a normal appearing basilar artery. The flow within the posterior cerebral arteries is normal and symmetric. No stenoses, occlusions, or aneurysms. NECK MR ANGIOGRAM: Proximal great vessels are not well seen. Bilateral common and internal carotid arteries are patent. Proximal vertebral arteries not well seen. Remainder of vertebral arteries patent. [employer] T2 imaging through the neck is grossly unremarkable. There is moderate multifocal patchy high T2 signal intensity within the bilateral lung parenchyma. Small left and trace right pleural effusions. IMPRESSION: BRAIN MRI: 1. No recent infarct. 2. Asymmetry of the lateral ventricles as described above. Differential considerations include congenital variation versus foraminal stenosis versus underlying mass lesion. There is no direct evidence evidence of an enhancing mass lesion in this location. 3. Mild volume loss and small vessel ischemic disease. BRAIN MR ANGIOGRAM: Negative cerebral MR angiography. NECK MR ANGIOGRAM: 1. No internal carotid artery stenosis bilaterally. 2. Vertebral arteries are patent as visualized. Dictated by: Jaqueline Crouch M.D. on 09/16/2021 at 9:22 Approved by: Jaqueline Crouch M.D. on 09/16/2021 at 9:32
[2021-09-16 01:25] LABS: Reflexed Lactate in 2 Hours Y
--- NOTE | 2021-09-16 01:50 | DI.ECHO.S_ITS ---
[facility]---------+ [facility] +---------+ : : [address] : : : : [id number] : : : : Phone: [phone] Echocardiogram Report + + :Name: JM WHYTE Study Date: 09/16/2021 Height: 64 in : :[facility] ReadingLocation: Weight: 130 lb : : Gender: Female BSA: 1.6 m2 : :: 1955 Age: 65 yrs BP: 108/68 mmHg: :Reason For Study: CONGESTIVE HEART FAILURE : :Ordering Physician: ALBER, : :ROC Performed By: Swathi Dewitt : :Referring: ROC CAMPO : + + Interpretation Summary Normal left ventricle size with ejection fraction 55-60%. Diastolic parameters suggest a relaxation abnormality of the left ventricle, consistent with probable normal filling pressures. No significant valvular abnormality. Procedure: A two-dimensional transthoracic echocardiogram with color flow and Doppler was performed. The study quality was technically adequate. Most of the acoustic windows were suboptimal, but the best imaging was obtained from the apical window. There is no prior echocardiogram noted for this patient. The patient was in sinus rhythm with heart rates between 70-90 bpm during the exam. Left Ventricle: The left ventricle is normal in size and wall thickness. The ejection fraction is estimated to be 55-60%. There are no focal wall motion abnormalities. Diastolic parameters suggest a relaxation abnormality of the left ventricle, consistent with probable normal filling pressures. Right Ventricle: The right ventricle is normal in size and function. Atria: The left atrial size is normal. Right atrial size is normal. There is no Doppler evidence for an interatrial shunt. Mitral Valve: The mitral valve leaflets appear mildly thickened, but open well. There is trace mitral regurgitation. Aortic Valve: The aortic valve is not well visualized. There is no aortic valve stenosis. No aortic regurgitation is present. Tricuspid Valve: The tricuspid valve is normal in structure and function. There is trace tricuspid regurgitation. Pulmonic Valve: The pulmonic valve is not well visualized. There is no pulmonic valvular regurgitation. Great Vessels: The aortic root is not well visualized. The ascending aorta could not be visualized. The IVC is of normal diameter and collapses greater than 50% with a sniff. This suggests a low right atrial pressure of 3 mm Hg. Pericardium/ Pleura There is no pericardial effusion. There is no pleural effusion. MMode/2D Measurements & Calculations LVIDd: 5.0 cm LVOT diam: 2.1 cm LVIDs: 3.2 cm Ao Arch Diam (Prox Trans): 2.7 cm FS: 35.4 % IVSd: 0.86 cm LVPWd: 0.80 cm LV day. diameter/BSA (cm/m^2): 3.1 LV sys. diameter/BSA (cm/m^2): 2.0 LA A2 area: 15.9 cm2 RA long axis: 4.2 cm LA A4 area: 18.6 cm2 RA area: 12.0 cm2 LA length (vol): 5.6 cm RA vol: 29.1 ml LA vol: 45.2 ml RA : 17.8 ml/m2 LA vol index: 27.8 ml/m2 IVC diam: 1.1 cm RVD1 (basal): 3.2 cm TAPSE: 2.0 cm Doppler Measurements & Calculations Ao V2 max: 169.0 cm/sec LVOT Max Ck: 131.3 cm/sec Ao V2 mean: 112.5 cm/sec LV V1 max P.9 mmHg Ao max P.4 mmHg LV V1 VTI: 19.5 cm Ao mean P.8 mmHg RAMÍREZ(I,D): 2.6 cm2 Ao V2 VTI: 25.4 cm RAMÍREZ(V,D): 2.7 cm2 sev ratio: 0.77 RAMÍREZ indexed to BSA (cm^2/m^2): 1.6 MV E max ck: 83.6 cm/sec PA V2 max: 108.6 cm/sec MV A max ck: 93.7 cm/sec PA V2 mean: 78.6 cm/sec MV E/A: 0.89 PA mean P.7 mmHg Med Peak E' Ck: 5.9 cm/sec PA pr(Accel): 37.9 mmHg E/E' med: 14.1 Lat Peak E' Ck: 6.7 cm/sec E/E' lat: 12.4 E/e' average: 13.3 MV dec time: 0.19 sec SV(LVOT): 66.8 ml Electronically signed by: Nicolas Wright on Reading Physician:09/16/2021 10:41 AM
[2021-09-16 01:55] LABS: Lactate 2HR (Lactic Acid Rflx) 3.1 mmol/L (0.7-2.1)
[2021-09-16 02:03] LABS: Fibrinogen 150 mg/dL (211-428)
[2021-09-16 02:06] LABS: D Dimer 935 ng/mL (<230)
[2021-09-16] MEDS: FUROSEMIDE 100 MG/10 ML VIAL 80 MG IV ×2 (02:08→22:46)
[2021-09-16] MEDS: POTASSIUM CHLORIDE IN WATER 10 MEQ/100 ML PIGGYBACK 100 MEQ IV ×3 (02:16→04:05)
[2021-09-16] MEDS: MEROPENEM 1 GM in SODIUM CHLORIDE 0.9% 100 ML IV ×2 (02:18→13:37)
[2021-09-16 03:32] LABS: Adenovirus Not Detected (Not Detect); B. parapertussis Not Detected (Not Detecte); Bordetella pertussis Not Detected (Not Detecte); Chlamydophila pneumoniae Not Detected (Not Detect); Coronavirus 229E Not Detected (Not Detect); Coronavirus HKU1 Not Detected (Not Detect); Coronavirus NL 63 Not Detected (Not Detect); Coronavirus OC43 Not Detected (Not Detect); Human Metapneumovirus Not Detected (Not Detect); Human Rhinovirus/Enterovirus Not Detected (Not Detect); Influenza A Not Detected (Not Detect); Influenza B Not Detected (Not Detect); Mycoplasma pneumoniae Not Detected (Not Detect); Parainfluenza Virus 1 Not Detected (Not Detect); Parainfluenza Virus 2 Not Detected (Not Detect); Parainfluenza Virus 3 Not Detected (Not Detect); Parainfluenza Virus 4 Not Detected (Not Detect); Respiratory Syncytial Virus Not Detected (Not Detect); SARS- CoV-2 Not Detected (Not Detecte)
[2021-09-16 04:05] LABS: HIV 1 & 2 Ab/Ag 4th Gen Combo NEGATIVE (NEGATIVE)
[2021-09-16 05:33] LABS: Hematocrit 21.7 % (36-46); Hemoglobin 7.4 g/dL (12.0-16.0); Mean Corpuscular Hemoglobin 32.5 PG (26-34); Mean Corpuscular Volume 95.5 fL (80-100); Red Blood Cell Count 2.28 X10^6/uL (4.0-5.2); Red Cell Distribution Width 14.1 % (11.6-14.8); White Blood Cell Count 5.3 X10^3/uL (4.5-11.0)
[2021-09-16 05:38] LABS: Alanine Aminotransferase 20 IU/L (<35); Albumin 2.8 g/dL (3.5-5.0); Alkaline Phosphatase 109 U/L (38-126); Aspartate Aminotransferase 61 IU/L (14-36); BUN Creatinine Ratio 18.3 (6-22); Bilirubin Total 0.7 mg/dL (0.2-1.3); Blood Urea Nitrogen 44 mg/dL (7-17); Carbon Dioxide 12 mmol/L (22-32); Chloride 110 mmol/L (98-107); Estimated Glomerular Filt Rate 22 mL/min (>60); Globulin 2.7 g/dL (1.7-4.1); Glucose 57 mg/dL (80-110); HEMOLYSIS < 15 (0-50); Potassium 3.6 mmol/L (3.4-5.1); Reticulocyte Count, Percent 1.3 % (1.1-2.6); Sodium 135 mmol/L (137-145); Total Protein 5.5 g/dL (6.3-8.2)
[2021-09-16 05:41] LABS: Add Manual Diff / Slide Review YES; Platelet Count 31 X10^3/uL (150-400)
[2021-09-16 05:53] LABS: Neutrophils Absolute Manual 2438 /uL (3000-5900); Nucleated Red Blood Cells 3 #/Diff; Total Cells Counted 100
[2021-09-16 06:03] LABS: HEMOLYSIS < 15 (0-50); Iron 159 ug/dL (37-170)
[2021-09-16 06:04] LABS: Alanine Aminotransferase 20 IU/L (<35); Albumin 2.8 g/dL (3.5-5.0); Albumin Globulin Ratio 1.2 (1.0-2.8); Alkaline Phosphatase 108 U/L (38-126); Aspartate Aminotransferase 60 IU/L (14-36); Bilirubin Total 0.7 mg/dL (0.2-1.3); Bilirubin Unconjugated 0.2 mg/dL (0.0-1.1); Globulin 2.4 g/dL (1.7-4.1); HEMOLYSIS < 15 (0-50); Total Protein 5.2 g/dL (6.3-8.2)
[2021-09-16 06:09] LABS: Platelet Estimate Decreased on smear
[2021-09-16 06:10] LABS: Anisocytosis 1+
[2021-09-16 06:14] LABS: Total Iron Binding Capacity 185 ug/dL (265-497); Transferrin 133 mg/dL (206-381)
[2021-09-16 06:16] LABS: Percent Iron Saturation 86 % (15-50)
[2021-09-16 06:18] LABS: Troponin I 0.262 ng/mL (0.01-0.034)
[2021-09-16 06:26] LABS: Vitamin B12 909 pg/mL (239-931)
--- NOTE | 2021-09-16 07:20 | PC.NURSE ---
Admit/Shift Note-Patient brought to ICU room 226 at 0120, oriented x3, fatigued and forgetful. [place] in right ear. SR, afebrile, BP stable, see vital trends, SpO2 >92% on RA, coarse lung sounds, occasional dry cough. NIH 4, passed RN bedside swallow eval, tolerating clear liquid diet, apple juice given for lab glucose 57, platelet 31 and Troponin 0.262 this am, Dr Calix aware. 1400ml UOP into [place] after IV Lasix given, K+ riders complete, receiving Meropenem as ordered.
--- NOTE | 2021-09-16 08:48 | PM.CN.EICU ---
History of Present Illness Consult details Chief complaint: Possible Stroke Narrative: HPI: Pt is a 65 yo W with no sig PMH and has not seen a physician in years. Pt. presented to hospital because of SOB for 5 days, LE weakness (L > R) for about 3 days, R eye blurriness for about 2-3 days, back pain for about 4 weeks, constipation for about 4-5 weeks, and n/v forbaout 3-4 weeks with eating . Patient takes 12 ibuprofens daily for back pain. ROS: she denies any fever/chills. No cough at home (she said her cough started after coming to hospital). No black or blood stools, no join pain, no rash. ED: Labs were significant for WBC of 7, hgb of 7.7, platelets 37, Cr 2.69, HCO3 of 10, Lactate of 3.3. INR wnl, Fibrinogen is low and D-Dimer is elevated. ESR and CRP are elevated. U/A showed 5-10 WBC and some bacteria. COVID test is neg. Head CT neg for acute process. Chest/abd CT showed ?Multifocal bilateral patchy ground-glass opacities in both lungs suggesting viral pneumonia, nonspecific colon thickening, and nonspecific diffuse omental thickening. PFSH Social History household members: none Smoking Status: Current every day smoker alcohol intake: never Comment: PmH: none PSH: gall bladder surgery FHs: sister had Lupus Soc Hx: smoked for > 40 years, about 1/2 ppd but recenlty cut down to a few sigs a day Current Medications Current Medications Medications: Visit Medications (administered) Generic Name Dose Route Start Last Admin Trade Name Freq PRN Reason Stop Dose Admin Furosemide 80 mg 09/16/21 01:50 09/16/21 02:08 Furosemide 100 Mg/10 Ml Vial IV 80 mg Q12H HILARY Administration Exam Vital Signs (past 8 hours): - 09/16/21 01:50 09/16/21 02:47 09/16/21 02:50 Temperature 98.5 F Pulse Rate 80 80 80 Respiratory Rate 15 29 H 24 Blood Pressure 123/67 Pulse Oximetry 92 94 94 Oxygen Delivery Method 09/16/21 02:50 09/16/21 03:00 09/16/21 03:00 Temperature Pulse Rate 80 Respiratory Rate 22 Blood Pressure 130/77 138/81 Pulse Oximetry 95 Oxygen Delivery Method 09/16/21 01:50 09/16/21 04:00 09/16/21 04:05 Temperature Pulse Rate 76 Respiratory Rate 25 H Blood Pressure 139/69 Pulse Oximetry 94 Oxygen Delivery Method Room Air 09/16/21 04:05 09/16/21 05:00 09/16/21 05:00 Temperature Pulse Rate 75 80 Respiratory Rate 22 18 Blood Pressure 131/84 Pulse Oximetry 93 94 Oxygen Delivery Method 09/16/21 06:00 09/16/21 06:00 09/16/21 07:00 Temperature Pulse Rate 81 Respiratory Rate 22 Blood Pressure 136/74 108/68 Pulse Oximetry 92 Oxygen Delivery Method 09/16/21 07:00 09/16/21 07:52 Temperature Pulse Rate 87 82 Respiratory Rate 29 H 16 Blood Pressure Pulse Oximetry 91 91 Oxygen Delivery Method Room Air Oxygen Delivery Method Room Air Objective Labs Result Diagrams: 09/16/21 05:01 09/16/21 05:01 Labs: Laboratory Results - last 24 hr 09/15/21 09/15/21 09/15/21 00:02 17:50 17:50 WBC 7.7 RBC 2.35 L Hgb 7.7 L Hct 22.1 L MCV 93.9 MCH 32.6 MCHC 34.7 RDW 13.9 Plt Count 37 L Neut % (Auto) Not Reportable Lymph % (Auto) Not Reportable [place] % (Auto) Not Reportable Eos % (Auto) Not Reportable Baso % (Auto) Not Reportable Lymph # (Auto) Not Reportable [place] # (Auto) Not Reportable Baso # (Auto) Not Reportable Total Counted 100 Seg Neutrophils % 41.0 Band Neutrophils % 8.0 H Lymphocytes % (Manual) 42.0 Atypical Lymphs % 1.0 H Monocytes % (Manual) 5.0 Eosinophils % (Manual) 2.0 Basophils % (Manual) 1.0 Neutrophils # (Manual) 3773 Nucleated RBCs 1 H Platelet Estimate Decreased on smear RBC Morphology See below Polychromasia 1+ H Anisocytosis 1+ H ESR Percent Retic PT INR APTT Fibrinogen D-Dimer ABG pH 7.21 L* ABG pCO2 24.8 L* ABG pO2 80 ABG HCO3 10 L ABG Total CO2 11 L ABG O2 Saturation 93 L ABG Base Excess -18.0 L FiO2 21 Sodium 134 L Potassium 2.9 L Chloride 106 Carbon Dioxide 10 L BUN 50 H Creatinine 2.69 H Estimated GFR 19 L BUN/Creatinine Ratio 18.6 Glucose 70 L Lactate Calcium 9.7 Iron TIBC % Saturation Transferrin Total Bilirubin 1.1 Conjugated Bilirubin Unconjugated Bilirubin AST 62 H ALT 22 Alkaline Phosphatase 115 Lactate Dehydrogenase Troponin I C-Reactive Protein NT-Pro-B Natriuret Pep Total Protein 6.0 L Albumin 3.3 L Globulin 2.7 Albumin/Globulin Ratio 1.2 Vitamin B12 Folate TSH Urine RBC Urine WBC Ur Squamous Epith Cells Urine Bacteria Ur Culture Indicated? Nasal Screen MRSA (PCR) Chlamy pneumoniae PCR Adenovirus (PCR) B. pertussis DNA (PCR) B.parapertussis DNA PCR Coronavirus OC43 (PCR) Coronavirus HKU1 (PCR) Coronavirus 229E (PCR) SARS-CoV-2 (PCR) Coronavirus NL63 (PCR) HIV 1&2 Ab/P24 Ag 4thGn Human Metapneumovir PCR Influenza Type A (PCR) Influenza Type B (PCR) M. pneumoniae (PCR) Parainfluenza 1 (PCR) Parainfluenza 2 (PCR) Parainfluenza 3 (PCR) Parainfluenza 4 (PCR) RSV (PCR) Entero/Rhino (PCR) Blood Type Antibody Screen 09/15/21 09/15/21 09/15/21 17:50 17:50 17:50 WBC RBC Hgb Hct MCV MCH MCHC RDW Plt Count Neut % (Auto) Lymph % (Auto) [place] % (Auto) Eos % (Auto) Baso % (Auto) Lymph # (Auto) [place] # (Auto) Baso # (Auto) Total Counted Seg Neutrophils % Band Neutrophils % Lymphocytes % (Manual) Atypical Lymphs % Monocytes % (Manual) Eosinophils % (Manual) Basophils % (Manual) Neutrophils # (Manual) Nucleated RBCs Platelet Estimate RBC Morphology Polychromasia Anisocytosis ESR Percent Retic PT 14.7 H INR 1.3 APTT 25 L Fibrinogen D-Dimer ABG pH ABG pCO2 ABG pO2 ABG HCO3 ABG Total CO2 ABG O2 Saturation ABG Base Excess FiO2 Sodium Potassium Chloride Carbon Dioxide BUN Creatinine Estimated GFR BUN/Creatinine Ratio Glucose Lactate Calcium Iron TIBC % Saturation Transferrin Total Bilirubin Conjugated Bilirubin Unconjugated Bilirubin AST ALT Alkaline Phosphatase Lactate Dehydrogenase Troponin I 0.116 H C-Reactive Protein NT-Pro-B Natriuret Pep Total Protein Albumin Globulin Albumin/Globulin Ratio Vitamin B12 Folate TSH 0.127 L Urine RBC Urine WBC Ur Squamous Epith Cells Urine Bacteria Ur Culture Indicated? Nasal Screen MRSA (PCR) Chlamy pneumoniae PCR Adenovirus (PCR) B. pertussis DNA (PCR) B.parapertussis DNA PCR Coronavirus OC43 (PCR) Coronavirus HKU1 (PCR) Coronavirus 229E (PCR) SARS-CoV-2 (PCR) Coronavirus NL63 (PCR) HIV 1&2 Ab/P24 Ag 4thGn Human Metapneumovir PCR Influenza Type A (PCR) Influenza Type B (PCR) M. pneumoniae (PCR) Parainfluenza 1 (PCR) Parainfluenza 2 (PCR) Parainfluenza 3 (PCR) Parainfluenza 4 (PCR) RSV (PCR) Entero/Rhino (PCR) Blood Type Antibody Screen 09/15/21 09/15/21 09/15/21 17:50 17:50 17:50 WBC RBC Hgb Hct MCV MCH MCHC RDW Plt Count Neut % (Auto) Lymph % (Auto) [place] % (Auto) Eos % (Auto) Baso % (Auto) Lymph # (Auto) [place] # (Auto) Baso # (Auto) Total Counted Seg Neutrophils % Band Neutrophils % Lymphocytes % (Manual) Atypical Lymphs % Monocytes % (Manual) Eosinophils % (Manual) Basophils % (Manual) Neutrophils # (Manual) Nucleated RBCs Platelet Estimate RBC Morphology Polychromasia Anisocytosis ESR 46 H Percent Retic PT INR APTT Fibrinogen D-Dimer ABG pH ABG pCO2 ABG pO2 ABG HCO3 ABG Total CO2 ABG O2 Saturation ABG Base Excess FiO2 Sodium Potassium Chloride Carbon Dioxide BUN Creatinine Estimated GFR BUN/Creatinine Ratio Glucose Lactate 3.3 H Calcium Iron TIBC % Saturation Transferrin Total Bilirubin Conjugated Bilirubin Unconjugated Bilirubin AST ALT Alkaline Phosphatase Lactate Dehydrogenase Troponin I C-Reactive Protein 19.6 H NT-Pro-B Natriuret Pep Total Protein Albumin Globulin Albumin/Globulin Ratio Vitamin B12 Folate TSH Urine RBC Urine WBC Ur Squamous Epith Cells Urine Bacteria Ur Culture Indicated? Nasal Screen MRSA (PCR) Chlamy pneumoniae PCR Adenovirus (PCR) B. pertussis DNA (PCR) B.parapertussis DNA PCR Coronavirus OC43 (PCR) Coronavirus HKU1 (PCR) Coronavirus 229E (PCR) SARS-CoV-2 (PCR) Coronavirus NL63 (PCR) HIV 1&2 Ab/P24 Ag 4thGn Human Metapneumovir PCR Influenza Type A (PCR) Influenza Type B (PCR) M. pneumoniae (PCR) Parainfluenza 1 (PCR) Parainfluenza 2 (PCR) Parainfluenza 3 (PCR) Parainfluenza 4 (PCR) RSV (PCR) Entero/Rhino (PCR) Blood Type Antibody Screen 09/15/21 09/15/21 09/15/21 17:50 18:50 19:35 WBC RBC Hgb Hct MCV MCH MCHC RDW Plt Count Neut % (Auto) Lymph % (Auto) [place] % (Auto) Eos % (Auto) Baso % (Auto) Lymph # (Auto) [place] # (Auto) Baso # (Auto) Total Counted Seg Neutrophils % Band Neutrophils % Lymphocytes % (Manual) Atypical Lymphs % Monocytes % (Manual) Eosinophils % (Manual) Basophils % (Manual) Neutrophils # (Manual) Nucleated RBCs Platelet Estimate RBC Morphology Polychromasia Anisocytosis ESR Percent Retic PT INR APTT Fibrinogen D-Dimer ABG pH ABG pCO2 ABG pO2 ABG HCO3 ABG Total CO2 ABG O2 Saturation ABG Base Excess FiO2 Sodium Potassium Chloride Carbon Dioxide BUN Creatinine Estimated GFR BUN/Creatinine Ratio Glucose Lactate Calcium Iron TIBC % Saturation Transferrin Total Bilirubin Conjugated Bilirubin Unconjugated Bilirubin AST ALT Alkaline Phosphatase Lactate Dehydrogenase 2018 H Troponin I C-Reactive Protein NT-Pro-B Natriuret Pep Total Protein Albumin Globulin Albumin/Globulin Ratio Vitamin B12 Folate TSH Urine RBC 0-1/hpf Urine WBC 5-10/hpf H Ur Squamous Epith Cells 1-5 /hpf Urine Bacteria Many (>30) H Ur Culture Indicated? Specimen cultured Nasal Screen MRSA (PCR) Chlamy pneumoniae PCR Adenovirus (PCR) B. pertussis DNA (PCR) B.parapertussis DNA PCR Coronavirus OC43 (PCR) Coronavirus HKU1 (PCR) Coronavirus 229E (PCR) SARS-CoV-2 (PCR) Coronavirus NL63 (PCR) HIV 1&2 Ab/P24 Ag 4thGn Human Metapneumovir PCR Influenza Type A (PCR) Influenza Type B (PCR) M. pneumoniae (PCR) Parainfluenza 1 (PCR) Parainfluenza 2 (PCR) Parainfluenza 3 (PCR) Parainfluenza 4 (PCR) RSV (PCR) Entero/Rhino (PCR) Blood Type O Positive Antibody Screen Negative 09/15/21 09/16/21 09/16/21 21:03 00:23 00:23 WBC RBC Hgb Hct MCV MCH MCHC RDW Plt Count Neut % (Auto) Lymph % (Auto) [place] % (Auto) Eos % (Auto) Baso % (Auto) Lymph # (Auto) [place] # (Auto) Baso # (Auto) Total Counted Seg Neutrophils % Band Neutrophils % Lymphocytes % (Manual) Atypical Lymphs % Monocytes % (Manual) Eosinophils % (Manual) Basophils % (Manual) Neutrophils # (Manual) Nucleated RBCs Platelet Estimate RBC Morphology Polychromasia Anisocytosis ESR Percent Retic PT INR APTT Fibrinogen D-Dimer ABG pH ABG pCO2 ABG pO2 ABG HCO3 ABG Total CO2 ABG O2 Saturation ABG Base Excess FiO2 Sodium Potassium Chloride Carbon Dioxide BUN Creatinine Estimated GFR BUN/Creatinine Ratio Glucose Lactate Calcium Iron TIBC % Saturation Transferrin Total Bilirubin Conjugated Bilirubin Unconjugated Bilirubin AST ALT Alkaline Phosphatase Lactate Dehydrogenase Troponin I 0.146 H* C-Reactive Protein NT-Pro-B Natriuret Pep 7350 H Total Protein Albumin Globulin Albumin/Globulin Ratio Vitamin B12 Folate TSH Urine RBC Urine WBC Ur Squamous Epith Cells Urine Bacteria Ur Culture Indicated? Nasal Screen MRSA (PCR) Chlamy pneumoniae PCR Adenovirus (PCR) B. pertussis DNA (PCR) B.parapertussis DNA PCR Coronavirus OC43 (PCR) Coronavirus HKU1 (PCR) Coronavirus 229E (PCR) SARS-CoV-2 (PCR) Negative Coronavirus NL63 (PCR) HIV 1&2 Ab/P24 Ag 4thGn Human Metapneumovir PCR Influenza Type A (PCR) Influenza Type B (PCR) M. pneumoniae (PCR) Parainfluenza 1 (PCR) Parainfluenza 2 (PCR) Parainfluenza 3 (PCR) Parainfluenza 4 (PCR) RSV (PCR) Entero/Rhino (PCR) Blood Type Antibody Screen 09/16/21 09/16/21 09/16/21 01:27 01:27 01:27 WBC RBC Hgb Hct MCV MCH MCHC RDW Plt Count Neut % (Auto) Lymph % (Auto) [place] % (Auto) Eos % (Auto) Baso % (Auto) Lymph # (Auto) [place] # (Auto) Baso # (Auto) Total Counted Seg Neutrophils % Band Neutrophils % Lymphocytes % (Manual) Atypical Lymphs % Monocytes % (Manual) Eosinophils % (Manual) Basophils % (Manual) Neutrophils # (Manual) Nucleated RBCs Platelet Estimate RBC Morphology Polychromasia Anisocytosis ESR Percent Retic PT INR APTT Fibrinogen 150 L D-Dimer 935 H ABG pH ABG pCO2 ABG pO2 ABG HCO3 ABG Total CO2 ABG O2 Saturation ABG Base Excess FiO2 Sodium Potassium Chloride Carbon Dioxide BUN Creatinine Estimated GFR BUN/Creatinine Ratio Glucose Lactate 3.1 H Calcium Iron TIBC % Saturation Transferrin Total Bilirubin Conjugated Bilirubin Unconjugated Bilirubin AST ALT Alkaline Phosphatase Lactate Dehydrogenase Troponin I C-Reactive Protein NT-Pro-B Natriuret Pep Total Protein Albumin Globulin Albumin/Globulin Ratio Vitamin B12 Folate TSH Urine RBC Urine WBC Ur Squamous Epith Cells Urine Bacteria Ur Culture Indicated? Nasal Screen MRSA (PCR) Chlamy pneumoniae PCR Adenovirus (PCR) B. pertussis DNA (PCR) B.parapertussis DNA PCR Coronavirus OC43 (PCR) Coronavirus HKU1 (PCR) Coronavirus 229E (PCR) SARS-CoV-2 (PCR) Coronavirus NL63 (PCR) HIV 1&2 Ab/P24 Ag 4thGn Negative Human Metapneumovir PCR Influenza Type A (PCR) Influenza Type B (PCR) M. pneumoniae (PCR) Parainfluenza 1 (PCR) Parainfluenza 2 (PCR) Parainfluenza 3 (PCR) Parainfluenza 4 (PCR) RSV (PCR) Entero/Rhino (PCR) Blood Type Antibody Screen 09/16/21 09/16/21 09/16/21 01:30 02:35 05:01 WBC 5.3 RBC 2.28 L Hgb 7.4 L Hct 21.7 L MCV 95.5 MCH 32.5 MCHC 34.0 RDW 14.1 Plt Count 31 L* Neut % (Auto) Not Reportable Lymph % (Auto) Not Reportable [place] % (Auto) Not Reportable Eos % (Auto) Not Reportable Baso % (Auto) Not Reportable Lymph # (Auto) Not Reportable [place] # (Auto) Not Reportable Baso # (Auto) Not Reportable Total Counted 100 Seg Neutrophils % 40.0 Band Neutrophils % 6.0 Lymphocytes % (Manual) 47.0 H Atypical Lymphs % Monocytes % (Manual) 1.0 L Eosinophils % (Manual) 6.0 H Basophils % (Manual) Neutrophils # (Manual) 2438 L Nucleated RBCs 3 H Platelet Estimate Decreased on smear RBC Morphology See below Polychromasia Anisocytosis 1+ H ESR Percent Retic PT INR APTT Fibrinogen D-Dimer ABG pH ABG pCO2 ABG pO2 ABG HCO3 ABG Total CO2 ABG O2 Saturation ABG Base Excess FiO2 Sodium Potassium Chloride Carbon Dioxide BUN Creatinine Estimated GFR BUN/Creatinine Ratio Glucose Lactate Calcium Iron TIBC % Saturation Transferrin Total Bilirubin Conjugated Bilirubin Unconjugated Bilirubin AST ALT Alkaline Phosphatase Lactate Dehydrogenase Troponin I C-Reactive Protein NT-Pro-B Natriuret Pep Total Protein Albumin Globulin Albumin/Globulin Ratio Vitamin B12 Folate TSH Urine RBC Urine WBC Ur Squamous Epith Cells Urine Bacteria Ur Culture Indicated? Nasal Screen MRSA (PCR) Negative for mrsa Chlamy pneumoniae PCR Not detected Adenovirus (PCR) Not detected B. pertussis DNA (PCR) Not detected B.parapertussis DNA PCR Not detected Coronavirus OC43 (PCR) Not detected Coronavirus HKU1 (PCR) Not detected Coronavirus 229E (PCR) Not detected SARS-CoV-2 (PCR) Not detected Coronavirus NL63 (PCR) Not detected HIV 1&2 Ab/P24 Ag 4thGn Human Metapneumovir PCR Not detected Influenza Type A (PCR) Not detected Influenza Type B (PCR) Not detected M. pneumoniae (PCR) Not detected Parainfluenza 1 (PCR) Not detected Parainfluenza 2 (PCR) Not detected Parainfluenza 3 (PCR) Not detected Parainfluenza 4 (PCR) Not detected RSV (PCR) Not detected Entero/Rhino (PCR) Not detected Blood Type Antibody Screen 09/16/21 09/16/21 09/16/21 05:01 05:01 05:01 WBC RBC Hgb Hct MCV MCH MCHC RDW Plt Count Neut % (Auto) Lymph % (Auto) [place] % (Auto) Eos % (Auto) Baso % (Auto) Lymph # (Auto) [place] # (Auto) Baso # (Auto) Total Counted Seg Neutrophils % Band Neutrophils % Lymphocytes % (Manual) Atypical Lymphs % Monocytes % (Manual) Eosinophils % (Manual) Basophils % (Manual) Neutrophils # (Manual) Nucleated RBCs Platelet Estimate RBC Morphology Polychromasia Anisocytosis ESR Percent Retic 1.3 PT INR APTT Fibrinogen D-Dimer ABG pH ABG pCO2 ABG pO2 ABG HCO3 ABG Total CO2 ABG O2 Saturation ABG Base Excess FiO2 Sodium 135 L Potassium 3.6 Chloride 110 H Carbon Dioxide 12 L BUN 44 H Creatinine 2.41 H Estimated GFR 22 L BUN/Creatinine Ratio 18.3 Glucose 57 L Lactate Calcium 9.0 Iron TIBC % Saturation Transferrin Total Bilirubin 0.7 0.7 Conjugated Bilirubin 0.0 Unconjugated Bilirubin 0.2 AST 61 H 60 H ALT 20 20 Alkaline Phosphatase 109 108 Lactate Dehydrogenase Troponin I 0.262 H* C-Reactive Protein NT-Pro-B Natriuret Pep Total Protein 5.5 L 5.2 L Albumin 2.8 L 2.8 L Globulin 2.7 2.4 Albumin/Globulin Ratio 1.0 1.2 Vitamin B12 909 Folate 6.0 TSH Urine RBC Urine WBC Ur Squamous Epith Cells Urine Bacteria Ur Culture Indicated? Nasal Screen MRSA (PCR) Chlamy pneumoniae PCR Adenovirus (PCR) B. pertussis DNA (PCR) B.parapertussis DNA PCR Coronavirus OC43 (PCR) Coronavirus HKU1 (PCR) Coronavirus 229E (PCR) SARS-CoV-2 (PCR) Coronavirus NL63 (PCR) HIV 1&2 Ab/P24 Ag 4thGn Human Metapneumovir PCR Influenza Type A (PCR) Influenza Type B (PCR) M. pneumoniae (PCR) Parainfluenza 1 (PCR) Parainfluenza 2 (PCR) Parainfluenza 3 (PCR) Parainfluenza 4 (PCR) RSV (PCR) Entero/Rhino (PCR) Blood Type Antibody Screen 09/16/21 05:01 WBC RBC Hgb Hct MCV MCH MCHC RDW Plt Count Neut % (Auto) Lymph % (Auto) [place] % (Auto) Eos % (Auto) Baso % (Auto) Lymph # (Auto) [place] # (Auto) Baso # (Auto) Total Counted Seg Neutrophils % Band Neutrophils % Lymphocytes % (Manual) Atypical Lymphs % Monocytes % (Manual) Eosinophils % (Manual) Basophils % (Manual) Neutrophils # (Manual) Nucleated RBCs Platelet Estimate RBC Morphology Polychromasia Anisocytosis ESR Percent Retic PT INR APTT Fibrinogen D-Dimer ABG pH ABG pCO2 ABG pO2 ABG HCO3 ABG Total CO2 ABG O2 Saturation ABG Base Excess FiO2 Sodium Potassium Chloride Carbon Dioxide BUN Creatinine Estimated GFR BUN/Creatinine Ratio Glucose Lactate Calcium Iron 159 TIBC 185 L % Saturation 86 H Transferrin 133 L Total Bilirubin Conjugated Bilirubin Unconjugated Bilirubin AST ALT Alkaline Phosphatase Lactate Dehydrogenase Troponin I C-Reactive Protein NT-Pro-B Natriuret Pep Total Protein Albumin Globulin Albumin/Globulin Ratio Vitamin B12 Folate TSH Urine RBC Urine WBC Ur Squamous Epith Cells Urine Bacteria Ur Culture Indicated? Nasal Screen MRSA (PCR) Chlamy pneumoniae PCR Adenovirus (PCR) B. pertussis DNA (PCR) B.parapertussis DNA PCR Coronavirus OC43 (PCR) Coronavirus HKU1 (PCR) Coronavirus 229E (PCR) SARS-CoV-2 (PCR) Coronavirus NL63 (PCR) HIV 1&2 Ab/P24 Ag 4thGn Human Metapneumovir PCR Influenza Type A (PCR) Influenza Type B (PCR) M. pneumoniae (PCR) Parainfluenza 1 (PCR) Parainfluenza 2 (PCR) Parainfluenza 3 (PCR) Parainfluenza 4 (PCR) RSV (PCR) Entero/Rhino (PCR) Blood Type Antibody Screen Assessment & Plan Assessment & Plan narrative: Assessment Renal failure non AG Metabolic acidosis anemia and thrombocytopenia Pulm Ground glass opacities B/L Discussion: Plan BELLY DANCER: Head CT neg for acute acute process -MRI report pending CV: ECHO today Pulm: unclear cause of pulm of GGO in chest CT. Given renal failure and patient's complaints of weakness, numbness, and visual changes, would consider ANCA vasculitis and anti GBM disease on differential -check ANCA and MANUEL panel -check complement level -if available check anti GBM -fixing metabolic acidosis with bicarb drip may help with patient's tachypenia ID: Pt. was startedon Meropenem for UTI -check blood and urine culture -consider narrow abx coverage or stopping abx based on cultures Heme:differential diagnoses for cause of thrombocytpenia included DIC, TTP, ITP -do hemolysis work up -check [id number] test if available -heme consult if available FEN/Renal/ -hold lasix to see if renal function improves with IVF -bicarb drip for Non AG metabolic acidosis -monitor CHem 7 q6H while on bicarb drip -consider renal biopsy if anti GBM disease still high on differential after initial work-up Code status: FULL code CCT spent 80 min Time Spent With Patient Critical Care time: I spent a total of [] minutes of critical care time on this patient's care today; this time is exclusive of procedural time.
[2021-09-16] MEDS: SODIUM BICARB 8.4% VIAL 100 MEQ in DEXTROSE 5% WATER 1,000 ML 150 MEQ IV (09:02)
[2021-09-16 09:21] LABS: Creatinine Urine Random 13.1 mg/dL; Sodium Urine Random 92 mmol/L (30-90)
--- NOTE | 2021-09-16 09:31 | OT.IPNOTE ---
OT eval and treat order received. Chart reviewed and discussed with P.T. and nursing. Per nursing, pt is not yet ready for therapy services. Will hold and continue to follow.
--- NOTE | 2021-09-16 10:57 | PT-IP ANOTE ---
Per [facility] WARD CLERK, pt is not medically stable for PT evaluation at this time. Will continue to follow.
[2021-09-16] MEDS: SODIUM CHLORIDE 0.9% FLUSH 10 ML IV ×2 (11:11→22:04)
[2021-09-16] MEDS: HYDROMORPHONE 0.5 MG INJ IV ×2 (11:50→21:29)
[2021-09-16 12:06] LABS: Lactate (Lactic Acid) 3.3 mmol/L (0.7-2.1)
--- NOTE | 2021-09-16 12:30 | PM.PN.1 ---
Subjective Subjective Interval history: Hospitalist follow-up visit. Patient states that she is feeling better. However she is very fatigued and weak in general. She indicates that she has trouble talking due to her tongue feeling weak. Able to talk fully but softly. No problems with fever cough shortness of breath. No abdominal pain. Able to pass air per rectum. General weakness of her entire body. Concern labs are not trending in that sufficiently improving manner. Most recent troponin is elevated, most recent platelets has decreased, lactic acid level is not consistently decreasing. Exam Vital Signs (past 8 hours): - 09/16/21 05:00 09/16/21 05:00 09/16/21 06:00 Pulse Rate 80 Respiratory Rate 18 Blood Pressure 131/84 136/74 Pulse Oximetry 94 Oxygen Delivery Method Oxygen Flow Rate 09/16/21 06:00 09/16/21 07:00 09/16/21 07:00 Pulse Rate 81 87 Respiratory Rate 22 29 H Blood Pressure 108/68 Pulse Oximetry 92 91 Oxygen Delivery Method Oxygen Flow Rate 09/16/21 07:52 09/16/21 08:00 09/16/21 08:00 Pulse Rate 82 83 Respiratory Rate 16 33 H Blood Pressure 111/64 Pulse Oximetry 91 89 L Oxygen Delivery Method Room Air Oxygen Flow Rate 09/16/21 08:00 09/16/21 07:00 09/16/21 08:00 Pulse Rate 87 83 Respiratory Rate Blood Pressure Pulse Oximetry Oxygen Delivery Method Room Air Oxygen Flow Rate 09/16/21 09:42 09/16/21 09:47 09/16/21 09:47 Pulse Rate 93 H 88 Respiratory Rate Blood Pressure 90/60 Pulse Oximetry 91 91 Oxygen Delivery Method Oxygen Flow Rate 09/16/21 10:00 09/16/21 10:01 09/16/21 10:01 Pulse Rate 81 81 Respiratory Rate Blood Pressure 94/53 L Pulse Oximetry 91 91 Oxygen Delivery Method Oxygen Flow Rate 09/16/21 10:00 09/16/21 11:00 09/16/21 11:00 Pulse Rate 78 79 79 Respiratory Rate 26 H 21 Blood Pressure 102/56 L Pulse Oximetry 93 94 Oxygen Delivery Method Oxygen Flow Rate 2 09/16/21 11:01 09/16/21 11:01 09/16/21 12:12 Pulse Rate 78 73 Respiratory Rate 20 86 H Blood Pressure 102/56 L 96/63 Pulse Oximetry 94 90 L Oxygen Delivery Method Oxygen Flow Rate 2 Oxygen Delivery Method Room Air Oxygen Flow Rate 2 Narrative Exam Narrative: Patient alert and oriented. Does not appear in any acute distress. Generally fatigued appearing. Breathing shallow with a respiratory rate of 26. HEENT: Pupils equally reactive to light extraocular movements are normal. Neck: Neck is supple. Neck nodes are nontender and not palpable. Trachea is midline. Respiratory: Adequate air entry throughout the lung [place]. No wheezes or crackles. Patient on O2 supplementation. Cardiovascular: Heart sounds S1-S2. Minimal pedal edema. Musculoskeletal: Able to move all extremities volitionally. Neuro: Normal sensation of all extremities. General weakness of left lower extremity Skin: No lesions or rashes. Objective Labs Result Diagrams: 09/16/21 05:01 09/16/21 05:01 Labs: Laboratory Results - last 24 hr 09/15/21 09/15/21 09/15/21 00:02 17:50 17:50 WBC 7.7 RBC 2.35 L Hgb 7.7 L Hct 22.1 L MCV 93.9 MCH 32.6 MCHC 34.7 RDW 13.9 Plt Count 37 L Neut % (Auto) Not Reportable Lymph % (Auto) Not Reportable [place] % (Auto) Not Reportable Eos % (Auto) Not Reportable Baso % (Auto) Not Reportable Lymph # (Auto) Not Reportable [place] # (Auto) Not Reportable Baso # (Auto) Not Reportable Total Counted 100 Seg Neutrophils % 41.0 Band Neutrophils % 8.0 H Lymphocytes % (Manual) 42.0 Atypical Lymphs % 1.0 H Monocytes % (Manual) 5.0 Eosinophils % (Manual) 2.0 Basophils % (Manual) 1.0 Neutrophils # (Manual) 3773 Nucleated RBCs 1 H Platelet Estimate Decreased on smear RBC Morphology See below Polychromasia 1+ H Anisocytosis 1+ H ESR Percent Retic PT INR APTT Fibrinogen D-Dimer ABG pH 7.21 L* ABG pCO2 24.8 L* ABG pO2 80 ABG HCO3 10 L ABG Total CO2 11 L ABG O2 Saturation 93 L ABG Base Excess -18.0 L FiO2 21 Sodium 134 L Potassium 2.9 L Chloride 106 Carbon Dioxide 10 L BUN 50 H Creatinine 2.69 H Estimated GFR 19 L BUN/Creatinine Ratio 18.6 Glucose 70 L Lactate Calcium 9.7 Iron TIBC % Saturation Transferrin Total Bilirubin 1.1 Conjugated Bilirubin Unconjugated Bilirubin AST 62 H ALT 22 Alkaline Phosphatase 115 Lactate Dehydrogenase Troponin I C-Reactive Protein NT-Pro-B Natriuret Pep Total Protein 6.0 L Albumin 3.3 L Globulin 2.7 Albumin/Globulin Ratio 1.2 Vitamin B12 Folate TSH Urine RBC Urine WBC Ur Squamous Epith Cells Urine Bacteria Ur Culture Indicated? Ur Random Sodium Urine Creatinine Nasal Screen MRSA (PCR) Chlamy pneumoniae PCR Adenovirus (PCR) B. pertussis DNA (PCR) B.parapertussis DNA PCR Coronavirus OC43 (PCR) Coronavirus HKU1 (PCR) Coronavirus 229E (PCR) SARS-CoV-2 (PCR) Coronavirus NL63 (PCR) HIV 1&2 Ab/P24 Ag 4thGn Human Metapneumovir PCR Influenza Type A (PCR) Influenza Type B (PCR) M. pneumoniae (PCR) Parainfluenza 1 (PCR) Parainfluenza 2 (PCR) Parainfluenza 3 (PCR) Parainfluenza 4 (PCR) RSV (PCR) Entero/Rhino (PCR) Blood Type Antibody Screen 09/15/21 09/15/21 09/15/21 17:50 17:50 17:50 WBC RBC Hgb Hct MCV MCH MCHC RDW Plt Count Neut % (Auto) Lymph % (Auto) [place] % (Auto) Eos % (Auto) Baso % (Auto) Lymph # (Auto) [place] # (Auto) Baso # (Auto) Total Counted Seg Neutrophils % Band Neutrophils % Lymphocytes % (Manual) Atypical Lymphs % Monocytes % (Manual) Eosinophils % (Manual) Basophils % (Manual) Neutrophils # (Manual) Nucleated RBCs Platelet Estimate RBC Morphology Polychromasia Anisocytosis ESR Percent Retic PT 14.7 H INR 1.3 APTT 25 L Fibrinogen D-Dimer ABG pH ABG pCO2 ABG pO2 ABG HCO3 ABG Total CO2 ABG O2 Saturation ABG Base Excess FiO2 Sodium Potassium Chloride Carbon Dioxide BUN Creatinine Estimated GFR BUN/Creatinine Ratio Glucose Lactate Calcium Iron TIBC % Saturation Transferrin Total Bilirubin Conjugated Bilirubin Unconjugated Bilirubin AST ALT Alkaline Phosphatase Lactate Dehydrogenase Troponin I 0.116 H C-Reactive Protein NT-Pro-B Natriuret Pep Total Protein Albumin Globulin Albumin/Globulin Ratio Vitamin B12 Folate TSH 0.127 L Urine RBC Urine WBC Ur Squamous Epith Cells Urine Bacteria Ur Culture Indicated? Ur Random Sodium Urine Creatinine Nasal Screen MRSA (PCR) Chlamy pneumoniae PCR Adenovirus (PCR) B. pertussis DNA (PCR) B.parapertussis DNA PCR Coronavirus OC43 (PCR) Coronavirus HKU1 (PCR) Coronavirus 229E (PCR) SARS-CoV-2 (PCR) Coronavirus NL63 (PCR) HIV 1&2 Ab/P24 Ag 4thGn Human Metapneumovir PCR Influenza Type A (PCR) Influenza Type B (PCR) M. pneumoniae (PCR) Parainfluenza 1 (PCR) Parainfluenza 2 (PCR) Parainfluenza 3 (PCR) Parainfluenza 4 (PCR) RSV (PCR) Entero/Rhino (PCR) Blood Type Antibody Screen 09/15/21 09/15/21 09/15/21 17:50 17:50 17:50 WBC RBC Hgb Hct MCV MCH MCHC RDW Plt Count Neut % (Auto) Lymph % (Auto) [place] % (Auto) Eos % (Auto) Baso % (Auto) Lymph # (Auto) [place] # (Auto) Baso # (Auto) Total Counted Seg Neutrophils % Band Neutrophils % Lymphocytes % (Manual) Atypical Lymphs % Monocytes % (Manual) Eosinophils % (Manual) Basophils % (Manual) Neutrophils # (Manual) Nucleated RBCs Platelet Estimate RBC Morphology Polychromasia Anisocytosis ESR 46 H Percent Retic PT INR APTT Fibrinogen D-Dimer ABG pH ABG pCO2 ABG pO2 ABG HCO3 ABG Total CO2 ABG O2 Saturation ABG Base Excess FiO2 Sodium Potassium Chloride Carbon Dioxide BUN Creatinine Estimated GFR BUN/Creatinine Ratio Glucose Lactate 3.3 H Calcium Iron TIBC % Saturation Transferrin Total Bilirubin Conjugated Bilirubin Unconjugated Bilirubin AST ALT Alkaline Phosphatase Lactate Dehydrogenase Troponin I C-Reactive Protein 19.6 H NT-Pro-B Natriuret Pep Total Protein Albumin Globulin Albumin/Globulin Ratio Vitamin B12 Folate TSH Urine RBC Urine WBC Ur Squamous Epith Cells Urine Bacteria Ur Culture Indicated? Ur Random Sodium Urine Creatinine Nasal Screen MRSA (PCR) Chlamy pneumoniae PCR Adenovirus (PCR) B. pertussis DNA (PCR) B.parapertussis DNA PCR Coronavirus OC43 (PCR) Coronavirus HKU1 (PCR) Coronavirus 229E (PCR) SARS-CoV-2 (PCR) Coronavirus NL63 (PCR) HIV 1&2 Ab/P24 Ag 4thGn Human Metapneumovir PCR Influenza Type A (PCR) Influenza Type B (PCR) M. pneumoniae (PCR) Parainfluenza 1 (PCR) Parainfluenza 2 (PCR) Parainfluenza 3 (PCR) Parainfluenza 4 (PCR) RSV (PCR) Entero/Rhino (PCR) Blood Type Antibody Screen 09/15/21 09/15/21 09/15/21 17:50 18:50 19:35 WBC RBC Hgb Hct MCV MCH MCHC RDW Plt Count Neut % (Auto) Lymph % (Auto) [place] % (Auto) Eos % (Auto) Baso % (Auto) Lymph # (Auto) [place] # (Auto) Baso # (Auto) Total Counted Seg Neutrophils % Band Neutrophils % Lymphocytes % (Manual) Atypical Lymphs % Monocytes % (Manual) Eosinophils % (Manual) Basophils % (Manual) Neutrophils # (Manual) Nucleated RBCs Platelet Estimate RBC Morphology Polychromasia Anisocytosis ESR Percent Retic PT INR APTT Fibrinogen D-Dimer ABG pH ABG pCO2 ABG pO2 ABG HCO3 ABG Total CO2 ABG O2 Saturation ABG Base Excess FiO2 Sodium Potassium Chloride Carbon Dioxide BUN Creatinine Estimated GFR BUN/Creatinine Ratio Glucose Lactate Calcium Iron TIBC % Saturation Transferrin Total Bilirubin Conjugated Bilirubin Unconjugated Bilirubin AST ALT Alkaline Phosphatase Lactate Dehydrogenase 2018 H Troponin I C-Reactive Protein NT-Pro-B Natriuret Pep Total Protein Albumin Globulin Albumin/Globulin Ratio Vitamin B12 Folate TSH Urine RBC 0-1/hpf Urine WBC 5-10/hpf H Ur Squamous Epith Cells 1-5 /hpf Urine Bacteria Many (>30) H Ur Culture Indicated? Specimen cultured Ur Random Sodium Urine Creatinine Nasal Screen MRSA (PCR) Chlamy pneumoniae PCR Adenovirus (PCR) B. pertussis DNA (PCR) B.parapertussis DNA PCR Coronavirus OC43 (PCR) Coronavirus HKU1 (PCR) Coronavirus 229E (PCR) SARS-CoV-2 (PCR) Coronavirus NL63 (PCR) HIV 1&2 Ab/P24 Ag 4thGn Human Metapneumovir PCR Influenza Type A (PCR) Influenza Type B (PCR) M. pneumoniae (PCR) Parainfluenza 1 (PCR) Parainfluenza 2 (PCR) Parainfluenza 3 (PCR) Parainfluenza 4 (PCR) RSV (PCR) Entero/Rhino (PCR) Blood Type O Positive Antibody Screen Negative 09/15/21 09/16/21 09/16/21 21:03 00:23 00:23 WBC RBC Hgb Hct MCV MCH MCHC RDW Plt Count Neut % (Auto) Lymph % (Auto) [place] % (Auto) Eos % (Auto) Baso % (Auto) Lymph # (Auto) [place] # (Auto) Baso # (Auto) Total Counted Seg Neutrophils % Band Neutrophils % Lymphocytes % (Manual) Atypical Lymphs % Monocytes % (Manual) Eosinophils % (Manual) Basophils % (Manual) Neutrophils # (Manual) Nucleated RBCs Platelet Estimate RBC Morphology Polychromasia Anisocytosis ESR Percent Retic PT INR APTT Fibrinogen D-Dimer ABG pH ABG pCO2 ABG pO2 ABG HCO3 ABG Total CO2 ABG O2 Saturation ABG Base Excess FiO2 Sodium Potassium Chloride Carbon Dioxide BUN Creatinine Estimated GFR BUN/Creatinine Ratio Glucose Lactate Calcium Iron TIBC % Saturation Transferrin Total Bilirubin Conjugated Bilirubin Unconjugated Bilirubin AST ALT Alkaline Phosphatase Lactate Dehydrogenase Troponin I 0.146 H* C-Reactive Protein NT-Pro-B Natriuret Pep 7350 H Total Protein Albumin Globulin Albumin/Globulin Ratio Vitamin B12 Folate TSH Urine RBC Urine WBC Ur Squamous Epith Cells Urine Bacteria Ur Culture Indicated? Ur Random Sodium Urine Creatinine Nasal Screen MRSA (PCR) Chlamy pneumoniae PCR Adenovirus (PCR) B. pertussis DNA (PCR) B.parapertussis DNA PCR Coronavirus OC43 (PCR) Coronavirus HKU1 (PCR) Coronavirus 229E (PCR) SARS-CoV-2 (PCR) Negative Coronavirus NL63 (PCR) HIV 1&2 Ab/P24 Ag 4thGn Human Metapneumovir PCR Influenza Type A (PCR) Influenza Type B (PCR) M. pneumoniae (PCR) Parainfluenza 1 (PCR) Parainfluenza 2 (PCR) Parainfluenza 3 (PCR) Parainfluenza 4 (PCR) RSV (PCR) Entero/Rhino (PCR) Blood Type Antibody Screen 09/16/21 09/16/21 09/16/21 01:27 01:27 01:27 WBC RBC Hgb Hct MCV MCH MCHC RDW Plt Count Neut % (Auto) Lymph % (Auto) [place] % (Auto) Eos % (Auto) Baso % (Auto) Lymph # (Auto) [place] # (Auto) Baso # (Auto) Total Counted Seg Neutrophils % Band Neutrophils % Lymphocytes % (Manual) Atypical Lymphs % Monocytes % (Manual) Eosinophils % (Manual) Basophils % (Manual) Neutrophils # (Manual) Nucleated RBCs Platelet Estimate RBC Morphology Polychromasia Anisocytosis ESR Percent Retic PT INR APTT Fibrinogen 150 L D-Dimer 935 H ABG pH ABG pCO2 ABG pO2 ABG HCO3 ABG Total CO2 ABG O2 Saturation ABG Base Excess FiO2 Sodium Potassium Chloride Carbon Dioxide BUN Creatinine Estimated GFR BUN/Creatinine Ratio Glucose Lactate 3.1 H Calcium Iron TIBC % Saturation Transferrin Total Bilirubin Conjugated Bilirubin Unconjugated Bilirubin AST ALT Alkaline Phosphatase Lactate Dehydrogenase Troponin I C-Reactive Protein NT-Pro-B Natriuret Pep Total Protein Albumin Globulin Albumin/Globulin Ratio Vitamin B12 Folate TSH Urine RBC Urine WBC Ur Squamous Epith Cells Urine Bacteria Ur Culture Indicated? Ur Random Sodium Urine Creatinine Nasal Screen MRSA (PCR) Chlamy pneumoniae PCR Adenovirus (PCR) B. pertussis DNA (PCR) B.parapertussis DNA PCR Coronavirus OC43 (PCR) Coronavirus HKU1 (PCR) Coronavirus 229E (PCR) SARS-CoV-2 (PCR) Coronavirus NL63 (PCR) HIV 1&2 Ab/P24 Ag 4thGn Negative Human Metapneumovir PCR Influenza Type A (PCR) Influenza Type B (PCR) M. pneumoniae (PCR) Parainfluenza 1 (PCR) Parainfluenza 2 (PCR) Parainfluenza 3 (PCR) Parainfluenza 4 (PCR) RSV (PCR) Entero/Rhino (PCR) Blood Type Antibody Screen 09/16/21 09/16/21 09/16/21 01:30 02:35 05:01 WBC 5.3 RBC 2.28 L Hgb 7.4 L Hct 21.7 L MCV 95.5 MCH 32.5 MCHC 34.0 RDW 14.1 Plt Count 31 L* Neut % (Auto) Not Reportable Lymph % (Auto) Not Reportable [place] % (Auto) Not Reportable Eos % (Auto) Not Reportable Baso % (Auto) Not Reportable Lymph # (Auto) Not Reportable [place] # (Auto) Not Reportable Baso # (Auto) Not Reportable Total Counted 100 Seg Neutrophils % 40.0 Band Neutrophils % 6.0 Lymphocytes % (Manual) 47.0 H Atypical Lymphs % Monocytes % (Manual) 1.0 L Eosinophils % (Manual) 6.0 H Basophils % (Manual) Neutrophils # (Manual) 2438 L Nucleated RBCs 3 H Platelet Estimate Decreased on smear RBC Morphology See below Polychromasia Anisocytosis 1+ H ESR Percent Retic PT INR APTT Fibrinogen D-Dimer ABG pH ABG pCO2 ABG pO2 ABG HCO3 ABG Total CO2 ABG O2 Saturation ABG Base Excess FiO2 Sodium Potassium Chloride Carbon Dioxide BUN Creatinine Estimated GFR BUN/Creatinine Ratio Glucose Lactate Calcium Iron TIBC % Saturation Transferrin Total Bilirubin Conjugated Bilirubin Unconjugated Bilirubin AST ALT Alkaline Phosphatase Lactate Dehydrogenase Troponin I C-Reactive Protein NT-Pro-B Natriuret Pep Total Protein Albumin Globulin Albumin/Globulin Ratio Vitamin B12 Folate TSH Urine RBC Urine WBC Ur Squamous Epith Cells Urine Bacteria Ur Culture Indicated? Ur Random Sodium Urine Creatinine Nasal Screen MRSA (PCR) Negative for mrsa Chlamy pneumoniae PCR Not detected Adenovirus (PCR) Not detected B. pertussis DNA (PCR) Not detected B.parapertussis DNA PCR Not detected Coronavirus OC43 (PCR) Not detected Coronavirus HKU1 (PCR) Not detected Coronavirus 229E (PCR) Not detected SARS-CoV-2 (PCR) Not detected Coronavirus NL63 (PCR) Not detected HIV 1&2 Ab/P24 Ag 4thGn Human Metapneumovir PCR Not detected Influenza Type A (PCR) Not detected Influenza Type B (PCR) Not detected M. pneumoniae (PCR) Not detected Parainfluenza 1 (PCR) Not detected Parainfluenza 2 (PCR) Not detected Parainfluenza 3 (PCR) Not detected Parainfluenza 4 (PCR) Not detected RSV (PCR) Not detected Entero/Rhino (PCR) Not detected Blood Type Antibody Screen 09/16/21 09/16/21 09/16/21 05:01 05:01 05:01 WBC RBC Hgb Hct MCV MCH MCHC RDW Plt Count Neut % (Auto) Lymph % (Auto) [place] % (Auto) Eos % (Auto) Baso % (Auto) Lymph # (Auto) [place] # (Auto) Baso # (Auto) Total Counted Seg Neutrophils % Band Neutrophils % Lymphocytes % (Manual) Atypical Lymphs % Monocytes % (Manual) Eosinophils % (Manual) Basophils % (Manual) Neutrophils # (Manual) Nucleated RBCs Platelet Estimate RBC Morphology Polychromasia Anisocytosis ESR Percent Retic 1.3 PT INR APTT Fibrinogen D-Dimer ABG pH ABG pCO2 ABG pO2 ABG HCO3 ABG Total CO2 ABG O2 Saturation ABG Base Excess FiO2 Sodium 135 L Potassium 3.6 Chloride 110 H Carbon Dioxide 12 L BUN 44 H Creatinine 2.41 H Estimated GFR 22 L BUN/Creatinine Ratio 18.3 Glucose 57 L Lactate Calcium 9.0 Iron TIBC % Saturation Transferrin Total Bilirubin 0.7 0.7 Conjugated Bilirubin 0.0 Unconjugated Bilirubin 0.2 AST 61 H 60 H ALT 20 20 Alkaline Phosphatase 109 108 Lactate Dehydrogenase Troponin I 0.262 H* C-Reactive Protein NT-Pro-B Natriuret Pep Total Protein 5.5 L 5.2 L Albumin 2.8 L 2.8 L Globulin 2.7 2.4 Albumin/Globulin Ratio 1.0 1.2 Vitamin B12 909 Folate 6.0 TSH Urine RBC Urine WBC Ur Squamous Epith Cells Urine Bacteria Ur Culture Indicated? Ur Random Sodium Urine Creatinine Nasal Screen MRSA (PCR) Chlamy pneumoniae PCR Adenovirus (PCR) B. pertussis DNA (PCR) B.parapertussis DNA PCR Coronavirus OC43 (PCR) Coronavirus HKU1 (PCR) Coronavirus 229E (PCR) SARS-CoV-2 (PCR) Coronavirus NL63 (PCR) HIV 1&2 Ab/P24 Ag 4thGn Human Metapneumovir PCR Influenza Type A (PCR) Influenza Type B (PCR) M. pneumoniae (PCR) Parainfluenza 1 (PCR) Parainfluenza 2 (PCR) Parainfluenza 3 (PCR) Parainfluenza 4 (PCR) RSV (PCR) Entero/Rhino (PCR) Blood Type Antibody Screen 09/16/21 09/16/21 09/16/21 05:01 08:10 10:30 WBC RBC Hgb Hct MCV MCH MCHC RDW Plt Count Neut % (Auto) Lymph % (Auto) [place] % (Auto) Eos % (Auto) Baso % (Auto) Lymph # (Auto) [place] # (Auto) Baso # (Auto) Total Counted Seg Neutrophils % Band Neutrophils % Lymphocytes % (Manual) Atypical Lymphs % Monocytes % (Manual) Eosinophils % (Manual) Basophils % (Manual) Neutrophils # (Manual) Nucleated RBCs Platelet Estimate RBC Morphology Polychromasia Anisocytosis ESR Percent Retic PT INR APTT Fibrinogen D-Dimer ABG pH ABG pCO2 ABG pO2 ABG HCO3 ABG Total CO2 ABG O2 Saturation ABG Base Excess FiO2 Sodium Potassium Chloride Carbon Dioxide BUN Creatinine Estimated GFR BUN/Creatinine Ratio Glucose Lactate 3.3 H Calcium Iron 159 TIBC 185 L % Saturation 86 H Transferrin 133 L Total Bilirubin Conjugated Bilirubin Unconjugated Bilirubin AST ALT Alkaline Phosphatase Lactate Dehydrogenase Troponin I C-Reactive Protein NT-Pro-B Natriuret Pep Total Protein Albumin Globulin Albumin/Globulin Ratio Vitamin B12 Folate TSH Urine RBC Urine WBC Ur Squamous Epith Cells Urine Bacteria Ur Culture Indicated? Ur Random Sodium 92 H Urine Creatinine 13.1 Nasal Screen MRSA (PCR) Chlamy pneumoniae PCR Adenovirus (PCR) B. pertussis DNA (PCR) B.parapertussis DNA PCR Coronavirus OC43 (PCR) Coronavirus HKU1 (PCR) Coronavirus 229E (PCR) SARS-CoV-2 (PCR) Coronavirus NL63 (PCR) HIV 1&2 Ab/P24 Ag 4thGn Human Metapneumovir PCR Influenza Type A (PCR) Influenza Type B (PCR) M. pneumoniae (PCR) Parainfluenza 1 (PCR) Parainfluenza 2 (PCR) Parainfluenza 3 (PCR) Parainfluenza 4 (PCR) RSV (PCR) Entero/Rhino (PCR) Blood Type Antibody Screen PFSH Social History household members: none Smoking Status: Current every day smoker alcohol intake: never Assessment & Plan Assessment & Plan narrative: 1. Acute respiratory distress and pneumonia with concern for severe sepsis On meropenem. Continue. O2 supplementation. Continue. Blood cultures remain pending. 2. Metabolic acidosis Combination of renal failure and lactic acidosis from presumed infection Follow lactic acid. Provide hydration. 3. Probable LEO Continue to monitor and provide intravenous hydration. 4. Anemia Continue to follow blood tests that have been ordered for workup. Monitor hemoglobin and transfuse if below 7. 5. Thrombocytopenia Continue to monitor trend. If continues to significantly decrease consider transfer to tertiary care facility. 6. Possible CHF Echocardiogram has normal ejection fraction and no valvular abnormalities. 7. Possible UTI Culture is pending. Patient on meropenem. 8. Elevated troponin Initial trend of troponin was to increase. Continue to follow. Likely demand ischemia and component of renal failure. 9. Hypokalemia Has been corrected. 10. Left leg weakness MRI brain shows frontal horn enlargement at the right and left ventricles and decrease cerebral volume S2. No concern for mass lesion in the brain. Will consider imaging of the low back to better elucidate cause for left leg weakness. 11. Omental thickening Unclear reason of this. Need to be vigilant that this may be a malignant or infection cause or inflammatory reason. 12. Mucosal enhancement of the colon Unclear of cause. Likely would benefit from a colonoscopy at some time. Patient's prognosis remains uncertain. Continue to monitor closely in the ICU. CODE: DNR/DNI Proxy: Sister Amaro Time Spent With Patient Critical Care time: I spent a total of [] minutes of critical care time on this patient's care today; this time is exclusive of procedural time. Quality VTE Deep Vein Thrombosis/Pulmonary Embolism Present on Admission: No
--- NOTE | 2021-09-16 12:40 | DI.RAD.S_ITS ---
PROCEDURE: XR CHEST FOR PICC 1V INDICATIONS: picc placement COMPARISON: [facility], CR, XR CHEST 2V, 09/15/2021, 17:01. FINDINGS: PICC was placed by the intravenous therapy team from the right side. Fluoroscopic spot film demonstrates the tip of PICC projecting to the area of right subclavian vein. Bilateral lung opacities compatible with pulmonary edema or multifocal pneumonia. IMPRESSION: Tip of PICC projects to the area of right subclavian vein. Dictated by: Radha Gallardo MD, PhD on 09/16/2021 at 12:56 Approved by: Radha Gallardo MD, PhD on 09/16/2021 at 12:56
--- NOTE | 2021-09-16 12:53 | ST.IPCSEOM ---
Visit Care Team Role Provider Type Beena Spence DO Primary Care Provider Physician Specialty: Family Practice Address: [address] [place] [address], [facility] Email: [email or web address] Trung Dumont MD Other Providers Physician Specialty: Medical Address: Phone: Fax: Email: Kandi Huff MD Other Providers Physician Specialty: Medical Address: Phone: Fax: Email: Radha Darby MD Other Providers Physician Specialty: Medical Address: Phone: Fax: Email: Romie Ann MD Other Providers Physician Specialty: Medical Address: Phone: Fax: Email: Abdulaziz Womack MD Other Providers Physician Specialty: Internal Medicine Address: Phone: Fax: Email: Baldev Cameron MD Other Providers Physician Specialty: Medical Address: Phone: Fax: Email: Barry Beasley MD Other Providers Physician Specialty: Internal Medicine Address: Phone: Fax: Email: Saúl Tdod MD Other Providers Physician Specialty: Medical Address: Phone: Fax: Email: Musa Darby MD Other Providers Physician Specialty: Medical Address: Phone: Fax: Email: Diandra Roman MD Other Providers Physician Specialty: Medical Address: Phone: Fax: Email: Fani Farrar Other Providers Physician Specialty: Medical Address: Phone: Fax: Email: Kartik Jalloh MD Other Providers Physician Specialty: Medical Address: Phone: Fax: Email: Bladimir Olmedo DO Emergency Provider Physician Referring Provider Specialty: Emergency Medicine Address: [address] [place] [address], [facility] Email: [email or web address] Oswaldo Calix MD Admit Provider Physician Attending Provider Specialty: Hospitalist Address: [address] [place] [address], [id number] Fax: Email: [email or web address] Speech-Language Pathology 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 Start: 09/16/21 12:36 Freq: Status: Active Protocol: Document 09/16/21 12:37 MG (Rec: 09/16/21 12:53 MG [id number]) Clinical Swallow Evaluation Session Time Visit Start Time 11:00 Visit Stop Time 11:25 Total Visit Minutes 25 Visit Information Visit Number 1 Setting Assessment Location Acute Care Visit Type Note Type Initial evaluation Next Note Type Next Note Type Treatment Note Patient Information Identification Type Name,Wristband History Pt is a 65 year old female with no significant PMH as she has not seen a physician in years who presents to the hospital with shortness of breath and leg weakness. She states she has had long time back pain. She takes as many as twelve ibuprofen daily, she is not surge of milligram dose. More recently over the last few days she has developed shortness of breath. She has a cough that is not productive. No fevers/chills. She has long time constipation for weeks, and can not remember when her last bowel movement occurred. She has noted weakness in her left leg for days. She has also noted blurry vision in her right eye and numbness in her chin for months. She has not noted any bleeding in her stool. No vomiting. No abdominal pain. No chest pain. CT head showed no acute process. CT thorax shows bilateral patchy groundglass opacities, multiople old rib fractures, diffuse omental thickening and hyperenhancement of the colon . She was ordered for fluids, nebs, and then lasix and antibiotics and admitted for further treatment. Social history: long time cigarette smoker. Subjective Observations Pt was resting in a reclined position in bed with nasal cannula placed. Pt was agreeable to a speech/swallow evaluation. Per the pt, she reported that things feel good in her mouth but not in her stomach. When prompted if she has GERD, she reported she does and take an over the counter medication. Pt reports she feels like things are stuck in her throat all the time, regardless of if she eats/drinks or not. Pt appeared very fatigued and weak but was arousable to work with safely. Pt does not appear to have an appetite at this time. Reported by Patient Pain Scale Used Numeric (0 - 10) Location Upper Back,Lower Back,Left Leg ,Right Leg Other Symptoms Choking,Difficulty swallowing liquids Current Diet Thin liquids,Caraway thick liquids,Honey thick liquids, Pudding thick liquids Baseline Feeding Method Needs some assistance Objective Assessment Mental Status Alert,Cooperative,Lethargic Oral Integrity Oral residue Dentition Missing teeth,Decay Lip Function Mild impairment Observation of Lips at Rest Symmetrical Pucker Reduced range of motion, Reduced strength Lip Retraction Reduced range of motion Alternating Pucker/Lip Retraction Reduced range of motion Tongue Function Moderate impairment Observations of Tongue at Rest Abnormal color Tongue Protrusion Reduced range of motion, Reduced strength Tongue Retraction Reduced range of motion, Reduced strength Tongue Lateralization Reduced range of motion, Reduced strength Jaw Function Mild impairment Observations of Jaw at Rest Within normal limits Jaw Opening Reduced strength Jaw Closing Reduced strength Jaw Lateralization Reduced strength Hard/Soft Palate Function Within normal limits Observations of Hard/Soft Palate Within normal limits Phonation Breathy,Reduced loudness Respiratory Sufficiency Within normal limits Comment Pt participated in formal OME. Pt's oral structure appeared very weak, possibly secondary to her generalized weakness. Food and Liquid Trials Position During Assessment Upright (90 degrees) Liquids Trialed Ice chips,Thin Oral Impairment Moderately impaired Oral Phase Comments No anterior spillage noted. The pt lip seal appeared adequate around the spoon. Overall weakness noted on all liquid trials. Pharyngeal Impairment Moderately impaired Pharyngeal Phase Comments Laryngeal palpation indicated adequate hyolaryngeal function and slightly reduced anterior hyoid excursion. At times her swallow was audible, indicating possible incoordination of the structure. No overt s/sx of aspiration were noted. No wet/ gurgly voice on all liquid trials. The pt did report feeling like things were stuck or not going down. O2 levels stayed between 93-94. Pt refused to participate in PO solid trials at this time. Fatigue/Endurance Moderate fatigue Comment Pt appeared to get more and more fatigued as trials progressed. Pt refused to eat due to her stomach being upset and not feeling hungry. Strategies Attempted Chin tuck,Effortful swallow, Other Response/Comments Multiple swallows was trialled as well due to the pt spontaneously doing them. Per the pt, the chin tuck maneuver was not helpful. Per the pt, effortful swallow and multiple swallows was maybe helpful. 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 Findings Swallowing Function Oropharyngeal phase dysphagia Severity of Swallow Impairment Moderately impaired Contributing Factors to Swallow Reduced alertness or attention Impairment ,Reduced oral strength/ coordination/sensation, Impaired oral-pharyngeal transport,Excessive oral residue Prognosis Fair Based on History of aspiration/ aspiration pneumonia, Comorbidities,Duration of symptoms/severity Impact on Safety and Functioning Risk for aspiration,Risk for inadequate nutrition/hydration Recommendations Instrumental Assessment No Swallowing Treatment Yes Frequency 1x daily Other Recommendations Pt is currently on a clear liquid diet at this time. Recommend continue as PO solid trials could not be conducted today. Safety Precautions/Swallowing 1 to 1 close supervision,Feed Recommendations only when alert,Remain upright (90 degrees) during all oral intake,Needs verbal cues to use recommended strategies, Small bites and sips when eating,Slow rate; swallow between bites,Multiple swallows Medication Recommendations As Tolerated Discharge Recommendations alf facility,long-term care facility Education Patient/Caregiver Education Described results of evaluation,Patient expressed understanding of evaluation, Patient expressed agreement with goals & treatment plans, Patient expressed understanding of safety precautions,Patient expressed understanding of feeding recommendations,Patient requires further education/ training Goals Short-term Goals Pt will participate in further education re: swallowing mechanism. Pt will utilize safe swallowing strategies with a minimum of 2 verbal cues. Long-term Goals Pt will utilize safe swallowing strategies independently. Pt will tolerate least restrictive diet without demonstrating overt s/sx of aspiration.
[2021-09-16 13:59] LABS: Mean Corpuscular HGB Conc 34.7 % (30-36); Mean Corpuscular Hemoglobin 32.8 PG (26-34); Mean Corpuscular Volume 94.4 fL (80-100); Red Cell Distribution Width 13.8 % (11.6-14.8)
[2021-09-16 13:59] LABS: Reflexed Lactate in 2 Hours Y
[2021-09-16 14:03] LABS: Add Manual Diff / Slide Review YES
[2021-09-16 14:06] LABS: Hemoglobin 5.9 g/dL (12.0-16.0); Platelet Count 23 X10^3/uL (150-400)
[2021-09-16 14:17] LABS: Alanine Aminotransferase 16 IU/L (<35); Albumin 2.1 g/dL (3.5-5.0); Alkaline Phosphatase 82 U/L (38-126); Aspartate Aminotransferase 49 IU/L (14-36); BUN Creatinine Ratio 19.3 (6-22); Bilirubin Total 0.5 mg/dL (0.2-1.3); Blood Urea Nitrogen 40 mg/dL (7-17); Calcium 7.4 mg/dL (8.4-10.2); Carbon Dioxide 14 mmol/L (22-32); Chloride 112 mmol/L (98-107); Creatine Kinase 72 U/L (30-135); Estimated Glomerular Filt Rate 26 mL/min (>60); Globulin 2.1 g/dL (1.7-4.1); Glucose 106 mg/dL (80-110); HEMOLYSIS < 15 (0-50); Sodium 137 mmol/L (137-145); Total Protein 4.2 g/dL (6.3-8.2)
[2021-09-16 14:19] LABS: Potassium 2.5 mmol/L (3.4-5.1)
[2021-09-16 14:30] LABS: Troponin I 0.392 ng/mL (0.01-0.034)
[2021-09-16 14:43] LABS: Neutrophils Absolute Manual 2160 /uL (3000-5900); Nucleated Red Blood Cells 2 #/Diff; Total Cells Counted 100
[2021-09-16 14:44] LABS: Anisocytosis 1+; RBC Morphology See
[2021-09-16 14:45] LABS: Platelet Estimate Decr
[2021-09-16 15:10] LABS: Lactate 2HR (Lactic Acid Rflx) 2.1 mmol/L (0.7-2.1)
[2021-09-16] MEDS: POTASSIUM CHLORIDE IV (15:34)
[2021-09-16] MEDS: SODIUM BICARB IV (15:34)
[2021-09-16] MEDS: [UNRECOGNIZED DRUG - OTHER] IV (15:34)
--- NOTE | 2021-09-16 15:43 | PC.NURSE ---
PT WITH NSR, HYPOTENSIVE BUT IMPROVING WITH IVF- PLACED ON 02 @ 2L NC AND INCREASED TO 3-4 LITERS FOR LOWERING SPO2 PT IS MOUTH BREATHING- AND HAS MOANING LOUDLY ON EACH EXHALATION- OBVIOUS PERIODS OF APNEA IN WHICH SHE WILL DESAT TO THE LOW-MID 80'S. LUNGS DIMINISHED AT BASES AND SHALLOW RESPS NOTED AT TIMES 35-40 BPM. 1+ EDEMA BILAT LOWER EXTREMITIES. ECHO COMPLETE IS MRI . PICC LINE INSERTED TO RIGHT UPPER EXTREMITY AND REPEAT LABS SHOWED EXTREMELY LOW BLOOD COUNTS TO INCLUDE PLTS - PT AGREEABLE FOR TRANSFUSION OF RBC X 2- AWAITING RELEASE FROM LAB - UPATE TO SISTER VIA TELEPHONE
[2021-09-16] MEDS: FUROSEMIDE 40 MG/4 ML VIAL IV ×2 (18:12→20:42)
[2021-09-16 19:21] LABS: Mean Corpuscular HGB Conc 34.4 % (30-36); Red Blood Cell Count 1.53 X10^6/uL (4.0-5.2); Red Cell Distribution Width 15.1 % (11.6-14.8)
[2021-09-16] MEDS: DOXYCYCLINE 100 MG in SODIUM CHLORIDE 0.9% 100 ML IV (21:29)
[2021-09-16 21:59] LABS: Hemoglobin 4.9 g/dL (12.0-16.0); White Blood Cell Count 1.7 X10^3/uL (4.5-11.0)
[2021-09-16 22:00] LABS: Hematocrit 14.2 % (36-46); Platelet Count 17 X10^3/uL (150-400)
[2021-09-16 22:02] LABS: Add Manual Diff / Slide Review YES
--- NOTE | 2021-09-16 22:29 | PC.NURSE ---
Addendum entered by Carmen Hearn R.N. 09/17/21 04:16: 0400 [facility] requested bilateral eyes be irrigated with saline and taped shut. Tasks completed as requested. Addendum entered by Carmen Hearn R.N. 09/17/21 02:11: 0131 RT in to remove BiPap. Family present at this time and departed at 0140. Patient at 0155. Dr. Calix and charge nurse, Jennie Sr RN notified. Sister Lela Soto notified of patient expiring. Family requesting [facility]. Addendum entered by Carmen Hearn R.N. 09/17/21 00:46: 2345 Sister Lela and niece at bedside. Dr. Calix notified of family arrival and Dr. Calix in for a visit. Patient remains on Bipap with sats 91-92%. Patient opening eyes briefly after coughing. Family requesting that patient be comfort care and that patient be given medication for work of breathing and for maximum comfort when BiPap removed. Medication given per EMAR and oxygen to remain in place for medication to be in good effect. Family voices understanding and grateful for medication administration. Original Note: Dr. Calix at bedside and discussion with Dr. Beasley regarding patient's course of treatment and current oracle reports developer recommendations. Patient currently on O2 6l with NRB 15 L and sats declining to 89-90%. 's recommendations to put patient on High Flow. RT present and patient placed on highflow O2 at 95%. O2 sats 91% briefly and then desaturations to 88%. Lasix given as per EMAR. [id number] Patient removed high flow oxygen and saturations decreasing to 57%. High flow oxygen replaced and saturations slowly increasing to 83%. RT notified of patients inability to maintain saturations. Dr. Calix notified of patients desaturations and addition of NRB 15 L over High Flow with no improvement in oxygen saturations. Dr. Calix order to place BiPap with RT at bedside and BiPap placed settings 14/8; 100% FiO2. Additional dose of Lasix given per EMAR. Dr. Calix spoke to sisterLela to update on patient's condition. Decision to focus on comfort measures agreed on by sister. Will leave current treatments in place with sister's hope of being able to visit patient tonight.
[2021-09-16 22:50] LABS: Neutrophils Absolute Manual 1020 /uL (3000-5900); Nucleated Red Blood Cells 12 #/Diff; RBC Morphology Normal Morphology; Total Cells Counted 50
[2021-09-17] VITALS: BP 119/66; PULSE 85; RESP 27; O2SAT 92
[2021-09-17] MEDS: LORazepam 2 MG/ML INJ 1 MG IV (00:28)
[2021-09-17] MEDS: HYDROMORPHONE 0.5 MG INJ 2 MG IV (00:30)
[2021-09-17] MEDS: SODIUM CHLORIDE 0.9% FLUSH 10 ML IV (00:33)
[2021-09-17 01:00] VITALS: BP 112/66; PULSE 97; RESP 18; O2SAT 81
[2021-09-17 01:31] VITALS: BP 79/54; PULSE 99; RESP 21; O2SAT 36
--- NOTE | 2021-09-17 01:31 | RT ---
Per Doctors orders, Patient taken off BiPAP.
--- NOTE | 2021-09-17 02:42 | PM.DDS.1 ---
Discharge Summary History of Illness Chief Complaint: Back Pain/Injury Narrative: Ms. Leonard is a 65W with no significant PMH as she has not seen a physician in years who presents to the hospital with shortness of breath, leg weakness. She states she has had long time back pain. She takes as many as twelve ibuprofen daily, she is not surge of milligram dose. More recently over the last few days she has developed shortness of breath. She has a cough that is not produtive. No fevers/chills. She has long time constipation for weeks, and can not remember when her last bowel movement occurred. She has noted weakness in her left leg for days. She has also noted blurry vision in her right eye and numbness in her chin for months. She has not noted any bleeding in her stool. No vomiting. No abdominal pain. No chest pain. In the ED workup was done, vitals notable for tachypnea. Labs notable for WBC 7.7, hgb 7.7, plts 37. Na 134, k 2.9, co2 10, creatinine 2.69. Trop 0.115. ESR and CRP elevated. BNP 7350. Lactate 3.3. Ua with bacteria and WBCs. COVID negative. CT head showed no acute process. CT thorax shows bilateral patchy groundglass opacities, multiople old rib fractures, diffuse omental thickening and hyperenhancement of the colon. She was ordered for fluids, nebs, and then lasix and antibiotics and admitted for further treatment. 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 Acute pancytopenia 2. Acute hypoxemic respiratory failure 3. Acute pneumonia 4. Acute kidney injury 5. Hypokalemia, severe 6. Elevated troponin, suspect myocardial demand ischemia Hospital Course: Ms. Leonard is a 65W with no known PMH, who has not seen a medical provider in many years. Prior to admitting she had developed fatigue and back pain for weeks. A few days prior to admission she developed back pain. She was admitted with shortness of breath and initially did not require oxygen. She had weakness in her left leg, and MRI showed no stroke, but did show asymmetry of her ventricles, but no definite mass. CT showed multifocal pneumonia and she was started on IV antibiotics with meropenem. COVID negative. Respiratory panel negative. She was also noted to be anemic and thrombocytopenic. She quickly had worsening respiratory failure and over the course of 24 hours she quickly required escalating oxygen requirements to heated high flow and then BIPAP. She had no evidence of bleeding but she had significantly dropping hemoglobin to the 4s, platelets to the teens, white count dropped to 1.7. LDH elevated, haptoglobin pending, there was concern for consumptive process. She was transfused but this did not improve her symptoms. Differential was broad including autoimminue processes, TTP, DIC, ITP, malignancy, ricketsial disease. HIV negative. She had workup begin for these severe processes. Blood smear pending, MANUEL, ANCA labs, complement labs pending. She had elevated BNP and trialed on lasix with no improvement in her respiratory status. Throughout her admission many attempts were made to transfer throughout the region with no success due to no bed availability. Discussion was had with family about her rapid decompensation and poor prognosis. The patient on admission had noted she was a DNR/DNI. Family agreed with respecting those wishes. She was made comfort measures and on 09/17 at 155am. Did discuss with family, and they were interesting in pursuing autopsy. Objective Labs Result Diagrams: 09/16/21 18:55 09/16/21 13:45 Labs: Laboratory Results - last 24 hr 09/15/21 09/16/21 09/16/21 18:50 01:27 01:30 WBC RBC Hgb Hct MCV MCH MCHC RDW Plt Count Neut % (Auto) Lymph % (Auto) [place] % (Auto) Eos % (Auto) Baso % (Auto) Lymph # (Auto) [place] # (Auto) Baso # (Auto) Total Counted Seg Neutrophils % Band Neutrophils % Lymphocytes % (Manual) Monocytes % (Manual) Eosinophils % (Manual) Neutrophils # (Manual) Nucleated RBCs Platelet Estimate RBC Morphology Anisocytosis Percent Retic Sodium Potassium Chloride Carbon Dioxide BUN Creatinine Estimated GFR BUN/Creatinine Ratio Glucose Lactate Calcium Iron TIBC % Saturation Transferrin Total Bilirubin Conjugated Bilirubin Unconjugated Bilirubin AST ALT Alkaline Phosphatase Total Creatine Kinase CK-MB (CK-2) CK-MB (CK-2) Rel Index Troponin I Total Protein Albumin Globulin Albumin/Globulin Ratio Vitamin B12 Folate Ur Random Sodium Urine Creatinine Nasal Screen MRSA (PCR) Negative for mrsa Chlamy pneumoniae PCR Adenovirus (PCR) B. pertussis DNA (PCR) B.parapertussis DNA PCR Coronavirus OC43 (PCR) Coronavirus HKU1 (PCR) Coronavirus 229E (PCR) SARS-CoV-2 (PCR) Coronavirus NL63 (PCR) HIV 1&2 Ab/P24 Ag 4thGn Negative Human Metapneumovir PCR Influenza Type A (PCR) Influenza Type B (PCR) M. pneumoniae (PCR) Parainfluenza 1 (PCR) Parainfluenza 2 (PCR) Parainfluenza 3 (PCR) Parainfluenza 4 (PCR) RSV (PCR) Entero/Rhino (PCR) Blood Type O Positive Antibody Screen Negative Crossmatch See Detail 09/16/21 09/16/21 09/16/21 02:35 05:01 05:01 WBC 5.3 RBC 2.28 L Hgb 7.4 L Hct 21.7 L MCV 95.5 MCH 32.5 MCHC 34.0 RDW 14.1 Plt Count 31 L* Neut % (Auto) Not Reportable Lymph % (Auto) Not Reportable [place] % (Auto) Not Reportable Eos % (Auto) Not Reportable Baso % (Auto) Not Reportable Lymph # (Auto) Not Reportable [place] # (Auto) Not Reportable Baso # (Auto) Not Reportable Total Counted 100 Seg Neutrophils % 40.0 Band Neutrophils % 6.0 Lymphocytes % (Manual) 47.0 H Monocytes % (Manual) 1.0 L Eosinophils % (Manual) 6.0 H Neutrophils # (Manual) 2438 L Nucleated RBCs 3 H Platelet Estimate Decreased on smear RBC Morphology See below Anisocytosis 1+ H Percent Retic Sodium 135 L Potassium 3.6 Chloride 110 H Carbon Dioxide 12 L BUN 44 H Creatinine 2.41 H Estimated GFR 22 L BUN/Creatinine Ratio 18.3 Glucose 57 L Lactate Calcium 9.0 Iron TIBC % Saturation Transferrin Total Bilirubin 0.7 Conjugated Bilirubin Unconjugated Bilirubin AST 61 H ALT 20 Alkaline Phosphatase 109 Total Creatine Kinase CK-MB (CK-2) CK-MB (CK-2) Rel Index Troponin I 0.262 H* Total Protein 5.5 L Albumin 2.8 L Globulin 2.7 Albumin/Globulin Ratio 1.0 Vitamin B12 909 Folate Ur Random Sodium Urine Creatinine Nasal Screen MRSA (PCR) Chlamy pneumoniae PCR Not detected Adenovirus (PCR) Not detected B. pertussis DNA (PCR) Not detected B.parapertussis DNA PCR Not detected Coronavirus OC43 (PCR) Not detected Coronavirus HKU1 (PCR) Not detected Coronavirus 229E (PCR) Not detected SARS-CoV-2 (PCR) Not detected Coronavirus NL63 (PCR) Not detected HIV 1&2 Ab/P24 Ag 4thGn Human Metapneumovir PCR Not detected Influenza Type A (PCR) Not detected Influenza Type B (PCR) Not detected M. pneumoniae (PCR) Not detected Parainfluenza 1 (PCR) Not detected Parainfluenza 2 (PCR) Not detected Parainfluenza 3 (PCR) Not detected Parainfluenza 4 (PCR) Not detected RSV (PCR) Not detected Entero/Rhino (PCR) Not detected Blood Type Antibody Screen Crossmatch 09/16/21 09/16/21 09/16/21 05:01 05:01 05:01 WBC RBC Hgb Hct MCV MCH MCHC RDW Plt Count Neut % (Auto) Lymph % (Auto) [place] % (Auto) Eos % (Auto) Baso % (Auto) Lymph # (Auto) [place] # (Auto) Baso # (Auto) Total Counted Seg Neutrophils % Band Neutrophils % Lymphocytes % (Manual) Monocytes % (Manual) Eosinophils % (Manual) Neutrophils # (Manual) Nucleated RBCs Platelet Estimate RBC Morphology Anisocytosis Percent Retic 1.3 Sodium Potassium Chloride Carbon Dioxide BUN Creatinine Estimated GFR BUN/Creatinine Ratio Glucose Lactate Calcium Iron 159 TIBC 185 L % Saturation 86 H Transferrin 133 L Total Bilirubin 0.7 Conjugated Bilirubin 0.0 Unconjugated Bilirubin 0.2 AST 60 H ALT 20 Alkaline Phosphatase 108 Total Creatine Kinase CK-MB (CK-2) CK-MB (CK-2) Rel Index Troponin I Total Protein 5.2 L Albumin 2.8 L Globulin 2.4 Albumin/Globulin Ratio 1.2 Vitamin B12 Folate 6.0 Ur Random Sodium Urine Creatinine Nasal Screen MRSA (PCR) Chlamy pneumoniae PCR Adenovirus (PCR) B. pertussis DNA (PCR) B.parapertussis DNA PCR Coronavirus OC43 (PCR) Coronavirus HKU1 (PCR) Coronavirus 229E (PCR) SARS-CoV-2 (PCR) Coronavirus NL63 (PCR) HIV 1&2 Ab/P24 Ag 4thGn Human Metapneumovir PCR Influenza Type A (PCR) Influenza Type B (PCR) M. pneumoniae (PCR) Parainfluenza 1 (PCR) Parainfluenza 2 (PCR) Parainfluenza 3 (PCR) Parainfluenza 4 (PCR) RSV (PCR) Entero/Rhino (PCR) Blood Type Antibody Screen Crossmatch 09/16/21 09/16/21 09/16/21 08:10 10:30 13:45 WBC 4.0 L RBC 1.80 L Hgb 5.9 L* Hct 17.0 L* MCV 94.4 MCH 32.8 MCHC 34.7 RDW 13.8 Plt Count 23 L* Neut % (Auto) Not Reportable Lymph % (Auto) Not Reportable [place] % (Auto) Not Reportable Eos % (Auto) Not Reportable Baso % (Auto) Not Reportable Lymph # (Auto) Not Reportable [place] # (Auto) Not Reportable Baso # (Auto) Not Reportable Total Counted 100 Seg Neutrophils % 53.0 Band Neutrophils % 1.0 L Lymphocytes % (Manual) 37.0 Monocytes % (Manual) 1.0 L Eosinophils % (Manual) 8.0 H Neutrophils # (Manual) 2160 L Nucleated RBCs 2 H Platelet Estimate Decr RBC Morphology See Anisocytosis 1+ H Percent Retic Sodium Potassium Chloride Carbon Dioxide BUN Creatinine Estimated GFR BUN/Creatinine Ratio Glucose Lactate 3.3 H Calcium Iron TIBC % Saturation Transferrin Total Bilirubin Conjugated Bilirubin Unconjugated Bilirubin AST ALT Alkaline Phosphatase Total Creatine Kinase CK-MB (CK-2) CK-MB (CK-2) Rel Index Troponin I Total Protein Albumin Globulin Albumin/Globulin Ratio Vitamin B12 Folate Ur Random Sodium 92 H Urine Creatinine 13.1 Nasal Screen MRSA (PCR) Chlamy pneumoniae PCR Adenovirus (PCR) B. pertussis DNA (PCR) B.parapertussis DNA PCR Coronavirus OC43 (PCR) Coronavirus HKU1 (PCR) Coronavirus 229E (PCR) SARS-CoV-2 (PCR) Coronavirus NL63 (PCR) HIV 1&2 Ab/P24 Ag 4thGn Human Metapneumovir PCR Influenza Type A (PCR) Influenza Type B (PCR) M. pneumoniae (PCR) Parainfluenza 1 (PCR) Parainfluenza 2 (PCR) Parainfluenza 3 (PCR) Parainfluenza 4 (PCR) RSV (PCR) Entero/Rhino (PCR) Blood Type Antibody Screen Crossmatch 09/16/21 09/16/21 09/16/21 13:45 14:40 18:55 WBC 1.7 L* D RBC 1.53 L Hgb 4.9 L* Hct 14.2 L* MCV 93.0 MCH 32.0 MCHC 34.4 RDW 15.1 H Plt Count 17 L* Neut % (Auto) Not Reportable Lymph % (Auto) Not Reportable [place] % (Auto) Not Reportable Eos % (Auto) Not Reportable Baso % (Auto) Not Reportable Lymph # (Auto) Not Reportable [place] # (Auto) Not Reportable Baso # (Auto) Not Reportable Total Counted 50 Seg Neutrophils % 38.0 Band Neutrophils % 22.0 H Lymphocytes % (Manual) 30.0 Monocytes % (Manual) 2.0 Eosinophils % (Manual) 8.0 H Neutrophils # (Manual) 1020 L Nucleated RBCs 12 H Platelet Estimate RBC Morphology Normal morphology Anisocytosis Percent Retic Sodium 137 Potassium 2.5 L* Chloride 112 H Carbon Dioxide 14 L BUN 40 H Creatinine 2.07 H Estimated GFR 26 L BUN/Creatinine Ratio 19.3 Glucose 106 Lactate 2.1 Calcium 7.4 L Iron TIBC % Saturation Transferrin Total Bilirubin 0.5 Conjugated Bilirubin Unconjugated Bilirubin AST 49 H ALT 16 Alkaline Phosphatase 82 Total Creatine Kinase 72 CK-MB (CK-2) TNP CK-MB (CK-2) Rel Index TNP Troponin I 0.392 H* Total Protein 4.2 L Albumin 2.1 L Globulin 2.1 Albumin/Globulin Ratio 1.0 Vitamin B12 Folate Ur Random Sodium Urine Creatinine Nasal Screen MRSA (PCR) Chlamy pneumoniae PCR Adenovirus (PCR) B. pertussis DNA (PCR) B.parapertussis DNA PCR Coronavirus OC43 (PCR) Coronavirus HKU1 (PCR) Coronavirus 229E (PCR) SARS-CoV-2 (PCR) Coronavirus NL63 (PCR) HIV 1&2 Ab/P24 Ag 4thGn Human Metapneumovir PCR Influenza Type A (PCR) Influenza Type B (PCR) M. pneumoniae (PCR) Parainfluenza 1 (PCR) Parainfluenza 2 (PCR) Parainfluenza 3 (PCR) Parainfluenza 4 (PCR) RSV (PCR) Entero/Rhino (PCR) Blood Type Antibody Screen Crossmatch
[2021-09-17 05:13] LABS: Complement C3 80 mg/dL (82-167)
[2021-09-17 05:13] LABS: Haptoglobin 137 mg/dL (37-355)
[2021-09-18 17:19] LABS: ANA Screen, IFA Negative (.)
== END 2021-09-17 01:55 | disposition expired | DRG 871 ==
LOC: ED 18:17 → AC 09-16 00:24 → ICU 09-16 01:22
PROVIDERS: Family Medicine Addiction Medicine; Internal Medicine; Neuromusculoskeletal Medicine, Sports Medicine; Admitting Provider Internal Medicine; Emergency Provider Emergency Medicine; PCP Family Medicine; Referring Provider Emergency Medicine; Visit Provider Internal Medicine
DX: A41.9 Sepsis, unspecified organism (principal); J18.9 Pneumonia, unspecified organism; J96.01 Acute respiratory failure with hypoxia; D61.818 Other pancytopenia; N17.9 Acute kidney failure, unspecified; I24.8 Other forms of acute ischemic heart disease; R65.20 Severe sepsis without septic shock; E87.6 Hypokalemia; D64.9 Anemia, unspecified; G89.29 Other chronic pain; M54.9 Dorsalgia, unspecified; F17.200 Nicotine dependence, unspecified, uncomplicated; Z66 Do not resuscitate; Z20.822 Contact with and (suspected) exposure to COVID-19; Z51.5 Encounter for palliative care
CPT/HCPCS: 36415; 36430; 36569; 36592; 36600; 70450; 70548; 70553; 71046; 71250; 72070; 74176; 80053; 80076; 81003; 81015; 82550; 82570; 82607; 82746; 82805; 82962; 83010; 83516; 83520; 83540; 83550; 83605; 83615; 83880; 84300; 84443; 84484; 85007; 85025; 85045; 85379; 85384; 85610; 85651; 85730; 86038; 86140; 86160; 86256; 86850; 86900; 86901; 87040; 87077; 87086; 87186; 87389; 87522; 87633; 87635; 87797; 92610; 93005; 93306; 94640; 94660; 94762; 96365; 96366; 99284; 99285; C9803; P9016; A9579; J1170; J1642; J1940; J2060; J2185; J3480